=== PATIENT | female | born 1965 | race Caucasian/White ===

== ENCOUNTER 2020-06-13 12:32 | Emergency (ER) | payer MEDICARE, SELFPAY ==
[2020-06-13 12:33] VITALS: BP 149/96; PULSE 84; RESP 16; TEMP 36.8; O2SAT 98; BMI 29.2
--- NOTE | 2020-06-13 13:10 | HMH.EDGENADL ---
ED Disposition Clinical Impression: Hypothyroidism Disposition: Home, Self-Care Condition on Discharge: Good Prescriptions: Amoxicillin/Potassium Clav [Augmentin 875-125 Tablet] 1 tab PO Q12H 7 Days #14 tab Transmission Status: Pending to [facility] Levothyroxine Sodium [Synthroid 125mcg (0.125mg) tablet] 125 mcg PO DAILY #30 tab Levothyroxine Sodium [Synthroid 125mcg (0.125mg) tablet] 125 mcg PO DAILY #30 tab Transmission Status: Pending to [facility] Ondansetron [Zofran 4mg ODT] 4 mg PO TIDP PRN 5 Days #15 tab PRN Reason: Nausea Transmission Status: Pending to [facility] Referrals: PCP,No [Primary Care Provider] - - Critical Care Critical Care Time: No Attestation: On 06/13/20, the high probability of a clinically significant, sudden or life threatening deterioration of the following system(s) required my full and direct attention, intervention and personal management. The time I documented below is in addition to time spent performing reported procedures but includes the following listed in this critical care notation. Medical Decision Making - Medical Records Medical records reviewed: Yes: I reviewed the patient's medical records. - Juan Inquiry Pt receiving controlled substance: No Vital Signs: 06/13/20 12:33 06/13/20 14:05 Temperature 98.2 F Temperature Source Oral Pulse Rate 66 Pulse Rate [Radial] 84 Respiratory Rate 16 Blood Pressure 121/67 Blood Pressure [Right Arm] 149/96 H Blood Pressure Mean [Right Arm] 113 Blood Pressure Position [Right Arm] Sitting 02 Sat by Pulse Oximetry 98 95 Oxygen Delivery Method Room Air - Lab Data Lab Results 06/13/20 13:15: Urine Color Yellow, Urine Appearance Clear, Urine pH 6.0, Ur Specific [place] 1.020, Urine Protein Negative, Urine Glucose (UA) Negative, Urine Ketones Negative, Urine Blood Negative, Urine Nitrate Positive, Urine Bilirubin Negative, Urine Urobilinogen 0.2, Ur Leukocyte Esterase 1+ A, Urine RBC Occasional, Urine WBC 20-50, Ur Squamous Epith Cells Occasional, Urine Bacteria 1+, Urine Trichomonas Occasional 06/13/20 13:20: WBC 6.9, RBC 3.52 L, Hgb 11.6 L, Hct 37.0, MCV 105.3 H, MCH 33.1 H, MCHC 31.4 L, RDW 15.5, Plt Count 226, MPV 8.3, Neut % (Auto) 62.9, Lymph % (Auto) 31.0, [place] % (Auto) 2.6, Eos % (Auto) 2.5, Baso % (Auto) 0.9, Neut # (Auto) 4.3, Lymph # (Auto) 2.1, [place] # (Auto) 0.2, Eos # (Auto) 0.2, Baso # (Auto) 0.1 06/13/20 13:20: Sodium 142, Potassium 3.8, Chloride 106, Carbon Dioxide 32 H, Anion Gap 7.8, BUN 20 H, Creatinine 1.40 H, Estimated Creat Clear 55, Estimated GFR 39 L, Est GFR ( Amer) 47 L, Glucose 86, Calcium 9.8, TSH 68.50 H, Thyroxine (T4) 0.9 L Result diagrams: 06/13/20 13:20 06/13/20 13:20 Orders (Tests/Meds): ORDERS Category Date Time Status Urine Culture Stat Micro 06/13/20 13:15 Received Medical Decision Narrative: 54-year-old female presents with symptoms most consistent with hypothyroidism. She has been off her Synthroid 125 mcg/day for the last few months and symptoms are most consistent with this. Obtain labs as well to assess and thyroid function has been test. She is not in myxedema coma right now or any concern for infection. Labs came back and confirmed hypothyroidism plan to restart Synthroid dose per request and discharge with return precautions and symptomatic treatment General Adult HPI - General Chief complaint: Headache Stated complaint: right ear pain, headache, Time Seen by Provider: 06/13/20 12:45 Mode of Arrival: Ambulatory Limitations: No Limitations Description of Symptoms (Recalled from ER Triage Doc. by RN): TO ED PER PVT CAR WITH MULTIPLE C/O. C/O DIZZINESS, HEADACHE, RT EAR PAIN, FACIAL PAIN X 1 MONTH. I THINK IT'S MY THYROID OUT OF MEDS SINCE DEC. PT JUST MOVED TO AREA AND HAS NOT EST. WITH PCP. PT ALSO, C/O INCREASED THIRST AND FREG URINATION, LT HIP PAIN RADIATING DOWN LEG X YEARS
[2020-06-13 13:32] LABS: Microscopic, Urine URINE MICROSCOPIC (MICROSCOPIC)
[2020-06-13 13:36] LABS: Appearance,Urine CLEAR (Clear); Bilirubin,Urine Negative (Negative); Blood, Urine Negative (Negative); Color,Urine YELLOW (Yellow); Glucose,Urine (UA) Negative (Negative); Ketones,Urine Negative (Negative); Leukocyte Esterase,Urine 1+ (Negative); Nitrate,Urine POSITIVE (Negative); Protein,Urine Negative (Negative); Urobilinogen,Urine 0.2 EU/dl (0.2)
[2020-06-13 13:37] LABS: Basophils # 0.1 K/mm3 (0-0.2); Basophils % 0.9 % (0.1-2.0); Eosinophils # 0.2 K/mm3 (0.0-0.4); Eosinophils % 2.5 % (0.1-12.0); Hemoglobin 11.6 g/dL (12.2-16.2); Lymphocytes # 2.1 K/mm3 (0.7-4.5); Mean Corpuscular HGB Conc 31.4 g/dL (31.8-35.4); Mean Corpuscular Hemoglobin 33.1 pg (27.0-31.2); Mean Corpuscular Volume 105.3 fl (81-99); Mean Platelet Volume 8.3 fl (7.4-10.4); Monocytes # 0.2 K/mm3 (0.1-1.0); Monocytes % 2.6 % (1.7-9.3); Neutrophils # 4.3 K/mm3 (1.8-7.8); Neutrophils % 62.9 % (37.0-80.0); Platelet Count 226 K/mm3 (142-424); Red Blood Count 3.52 M/mm3 (4.20-5.40); Red Cell Distribution Width 15.5 % (11.5-17.5); White Blood Count 6.9 K/mm3 (4.8-10.8)
[2020-06-13 13:42] LABS: Chloride 106 mmol/L (98-107); Sodium 142 mmol/L (136-145)
[2020-06-13 13:43] LABS: Potassium 3.8 mmoL/L (3.5-5.1)
[2020-06-13 13:45] LABS: Blood Urea Nitrogen 20 mg/dl (7-17)
[2020-06-13 13:46] LABS: Anion Gap 7.8 mEq/L (5-15); Calcium 9.8 mg/dl (8.4-10.2); Carbon Dioxide 32 mmol/L (22.0-30.0); Creatinine Clearance Estimated 55 mL/min (50-200); Estimated Glomerular Filt Rate 39 ml/min (>60); GFR (African American) 47 ML/MIN (>60); Glucose 86 mg/dl (74-100)
[2020-06-13 13:53] LABS: WBC,Urine 20-50 #/hpf (0-3)
[2020-06-13 13:54] LABS: Bacteria,Urine 1+ /lpf; RBC,Urine Occasional #/hpf (0-3); Squamous Epithelial Cell,Urine Occasional #/hpf (0-5); Trichomonas,Urine Occasional /lpf
[2020-06-13 14:04] LABS: T4 (Thyroxine) 0.9 ug/dl (5.53-11.0)
[2020-06-13 14:05] VITALS: BP 121/67; PULSE 66; O2SAT 95
[2020-06-13 14:42] VITALS: BP 138/73; PULSE 63; RESP 17; TEMP 36.8; O2SAT 96
== END 2020-06-13 14:43 | disposition home or self-care (01) ==
PROVIDERS: Emergency Provider Emergency Medicine
DX: E03.9 Hypothyroidism, unspecified (principal); R35.0 Frequency of micturition
CPT/HCPCS: 80048; 81001; 84436; 84443; 85025; 87086; 87088; 87186; 99282

== ENCOUNTER → 2020-07-15 12:09 | Outpatient (CLI) | payer MEDICARE, SELFPAY ==
--- NOTE | 2020-07-15 12:25 | XR_ITS ---
PROCEDURE: XR CHEST 2V CLINICAL HISTORY: chest pain COMPARISON: No exams were available for comparison FINDINGS: The cardiomediastinal silhouette and pulmonary vascularity are within normal limits. The lungs are clear without infiltrates, suspicious nodules, or pleural effusions. There are calcified hilar nodes and there is a calcified granuloma left lower lobe. No acute bony abnormalities. IMPRESSION: No acute findings. Dictated by: Dr. Sam Cruz MD 07/15/2020 12:37 Dr. Sam Cruz MD in [place] 07/15/2020 12:37
[2020-07-15 13:04] LABS: Basophils % 0.5 % (0.1-2.0); Eosinophils # 0.1 K/mm3 (0.0-0.4); Eosinophils % 1.7 % (0.1-12.0); Hemoglobin 11.1 g/dL (12.2-16.2); Lymphocytes % 27.9 % (10-50); Mean Corpuscular HGB Conc 31.7 g/dL (31.8-35.4); Mean Corpuscular Hemoglobin 33.8 pg (27.0-31.2); Mean Corpuscular Volume 106.6 fl (81-99); Mean Platelet Volume 8.1 fl (7.4-10.4); Monocytes # 0.2 K/mm3 (0.1-1.0); Monocytes % 3.4 % (1.7-9.3); Neutrophils # 4.7 K/mm3 (1.8-7.8); Neutrophils % 66.5 % (37.0-80.0); Platelet Count 248 K/mm3 (142-424); Red Blood Count 3.28 M/mm3 (4.20-5.40); Red Cell Distribution Width 13.6 % (11.5-17.5)
[2020-07-15 13:28] LABS: Chloride 108 mmol/L (98-107); Potassium 4.5 mmoL/L (3.5-5.1); Sodium 142 mmol/L (136-145)
[2020-07-15 13:30] LABS: Blood Urea Nitrogen 21 mg/dl (7-17); Estimated Glomerular Filt Rate 65 ml/min (>60); GFR (African American) 79 ML/MIN (>60)
[2020-07-15 13:31] LABS: Alanine Aminotransferase 32 U/L (12-78); Albumin Level 4.7 g/dl (3.5-5.0); Albumin/Globulin Ratio 1.8 (1.1-1.8); Alkaline Phosphatase 76 U/L (38-126); Anion Gap 12.5 mEq/L (5-15); Aspartate Amino Transferase 42 U/L (14-36); Bilirubin,Total 0.4 mg/dl (0.2-1.3); Calcium 9.9 mg/dl (8.4-10.2); Carbon Dioxide 26 mmol/L (22.0-30.0); Cholesterol 241 mg/dl (140-200); Globulin 2.6 g/dL (1.3-3.2); Glucose 99 mg/dl (74-100); Total Protein,Serum 7.3 g/dl (6.3-8.2); Triglycerides 120 mg/dl (30-150); VLDL Cholesterol 24 mg/dL (0-40)
[2020-07-15 13:32] LABS: Chol/HDL Ratio 5.1 (1-3.5); HDL Cholesterol 47 mg/dl (40-60)
[2020-07-15 13:42] LABS: C-Reactive Protein 44.7 mg/L (0-4)
[2020-07-15 13:47] LABS: Direct LDL Cholesterol 145.02 mg/dL (100-129)
[2020-07-15 14:03] LABS: Thyroid Stimulating Hormone 2.93 uIU/mL (0.465-4.68)
== END ==
PROVIDERS: Visit Provider Family Medicine
DX: E78.5 Hyperlipidemia, unspecified (principal); E03.9 Hypothyroidism, unspecified; M15.4 Erosive (osteo)arthritis; J44.9 Chronic obstructive pulmonary disease, unspecified; R07.9 Chest pain, unspecified
CPT/HCPCS: 36415; 71046; 80053; 80061; 84443; 85025; 86140

== ENCOUNTER 2021-01-28 13:41 | Emergency (ER) | payer MEDICARE, SELFPAY ==
[2021-01-28 13:45] VITALS: BP 141/87; PULSE 93; RESP 18; TEMP 36.6; O2SAT 98; BMI 31.7
--- NOTE | 2021-01-28 14:23 | HMH.EDUTC ---
[facility] [place] Clinical Impression: Skin infection Disposition: Home, Self-Care Condition on Discharge: Good Instructions: DI for Anxiety -- Adult, DI for Itching, Hydroxyzine Additional Instructions: Take medication as prescribed Over the counter aquaphor may help with lesions on face and chest DO NOT PICK at the lesions as this may lead to infection Follow up with your Family Doctor if no improvement or any worsening of symptoms or if swelling or edema returns Straight to ER if any life threatening symptoms Prescriptions: Mupirocin Calcium [Mupirocin 2% Cream 15gm] 1 applicatio TP TID #15 gm Transmission Status: Received by [facility] hydrOXYzine pamoate [Vistaril 25mg capsule] 25 mg PO Q8H PRN #15 cap PRN Reason: Itching Transmission Status: Received by [facility] Referrals: Ge Palm MD [Primary Care Provider] - As needed Forms: Work/School Release Time of Disposition: 14:42 Medical Decision Making - Juan Inquiry Pt receiving controlled substance: No Juan was queried for this patient: No Vital Signs: 01/28/21 13:45 01/28/21 14:52 Temperature 97.8 F 97.8 F Temperature Source Oral Pulse Rate 93 H Pulse Rate [Right Brachial] 93 H Respiratory Rate 18 18 Blood Pressure 141/87 H Blood Pressure [Right Arm] 141/87 H Blood Pressure Mean [Right Arm] 105 Blood Pressure Source [Right Arm] Automatic Cuff Blood Pressure Position [Right Arm] Sitting 02 Sat by Pulse Oximetry 98 Oxygen Delivery Method Room Air [facility] [place] HPI - General Stated complaint: facial rash 3-4 days Time Seen by Provider: 01/28/21 14:23 Mode of Arrival: Ambulatory Source of Information: Patient Limitations: No Limitations Description of Symptoms (Recalled from Triage Doc. by RN): PATIENT C/O RASH TO FACE X 4 DAYS AND FLUID RETENTION TO LEGS AND HANDS X 2 DAYS HEENT Symptoms (Recalled from RN notes): No Resp Symptoms (Recalled from RN notes): No Skin Symptoms (Recalled from RN notes): Yes MS Symptoms (Recalled from RN notes): Yes Functional Status (Recalled from RN notes): WNL - History of Present Illness Provider Complaint: Patient states that she has had rash on her face and chest for several days and she has been a little anxious and has been picking at it and worried that she may have it infected States that family bought her some neosporin to put on it and it has helped some but she is itching all over and she has picked at it more States that she had some swelling in her legs and feet a couple days ago but that seems better now - Related Data Home Medications Medication Instructions Recorded Confirmed Levothyroxine Sodium [Synthroid 125 mcg PO DAILY 01/28/21 01/28/21 125mcg (0.125mg) tablet] Previous Rx's Medication Instructions Recorded Mupirocin Calcium [Mupirocin 2% 1 applicatio TP TID #15 gm 01/28/21 Cream 15gm] hydrOXYzine pamoate [Vistaril 25mg 25 mg PO Q8H PRN #15 cap 01/28/21 capsule] Allergies Allergy/AdvReac Type Severity Reaction Status Date / Time pentazocine [From Reyna] Allergy Verified 07/15/20 11:09 Sulfa (Sulfonamide Allergy Verified 07/15/20 11:09 Antibiotics) - Worker's Comp Is this a Worker's Comp case?: No [facility] History - Hepatitis A Screen Drug use history?: No High risk sexual behaviors?: No History of sexually transmitted infection?: No Currently employed?: No Childcare worker?: No Do you have indoor plumbing?: Yes Do you have electricity?: Yes Attestation statement:: This patient has been screened for Hepatitis A risk factors. I have reviewed the patient's past medical history: Yes Medical History: Reports:: Chronic Obstructive Pulmonary Disease (COPD) Other Medical History: Reports: Hypothyroidism Laterality Cases: Bilateral: Tonsillectomy Other Surgeries: Yes: Tubal Ligation Comment: excision of lesion under breast. - Social History Smoking Status: Current every day smoker Tobacco Type: cig
[2021-01-28 14:52] VITALS: BP 141/87; PULSE 93; RESP 18; TEMP 36.6; O2SAT 98
== END 2021-01-28 14:57 | disposition home or self-care (01) ==
PROVIDERS: Emergency Provider Nurse Practitioner; PCP Emergency Medicine
DX: L08.9 Local infection of the skin and subcutaneous tissue, unspecified (principal); R21 Rash and other nonspecific skin eruption; F17.210 Nicotine dependence, cigarettes, uncomplicated; R60.0 Localized edema; J44.9 Chronic obstructive pulmonary disease, unspecified; E03.9 Hypothyroidism, unspecified; Z79.899 Other long term (current) drug therapy
CPT/HCPCS: G0463; 99202

== ENCOUNTER → 2021-09-09 06:59 | Outpatient (CLI) | payer MEDICARE, SELFPAY ==
[2021-09-08 18:39] LABS: Basophils # 0.1 K/mm3 (0-0.2); Basophils % 1.7 % (0.1-2.0); Eosinophils # 0.2 K/mm3 (0.0-0.4); Eosinophils % 2.8 % (0.1-12.0); Hematocrit 45.5 % (37.0-47.0); Hemoglobin 14.7 g/dL (12.2-16.2); Lymphocytes # 2.7 K/mm3 (0.7-4.5); Lymphocytes % 38.1 % (10-50); Mean Corpuscular HGB Conc 32.3 g/dL (31.8-35.4); Mean Corpuscular Hemoglobin 30.6 pg (27.0-31.2); Mean Corpuscular Volume 94.6 fl (81-99); Mean Platelet Volume 8.8 fl (7.4-10.4); Monocytes # 0.2 K/mm3 (0.1-1.0); Monocytes % 2.9 % (1.7-9.3); Neutrophils # 3.9 K/mm3 (1.8-7.8); Neutrophils % 54.6 % (37.0-80.0); Platelet Count 325 K/mm3 (142-424); Red Blood Count 4.81 M/mm3 (4.20-5.40); Red Cell Distribution Width 14.3 % (11.5-17.5); White Blood Count 7.2 K/mm3 (4.8-10.8)
[2021-09-08 19:04] LABS: Alanine Aminotransferase 33 U/L (12-78); Albumin Level 4.4 g/dl (3.5-5.0); Anion Gap 14.9 mEq/L (5-15); Aspartate Amino Transferase 35 U/L (14-36); Blood Urea Nitrogen 19 mg/dl (7-17); Calcium 9.8 mg/dl (8.4-10.2); Carbon Dioxide 26 mmol/L (22.0-30.0); Chloride 104 mmol/L (98-107); Estimated Glomerular Filt Rate 74 ml/min (>60); GFR (African American) 90 ML/MIN (>60); Globulin 2.8 g/dL (1.3-3.2); Glucose 123 mg/dl (74-100); Potassium 4.9 mmoL/L (3.5-5.1); Sodium 140 mmol/L (136-145); Total Protein,Serum 7.2 g/dl (6.3-8.2)
[2021-09-08 19:05] LABS: Albumin/Globulin Ratio 1.6 (1.1-1.8); Alkaline Phosphatase 94 U/L (38-126)
[2021-09-08 19:09] LABS: Bilirubin,Total < 0.1 mg/dl (0.2-1.3)
[2021-09-08 19:21] LABS: Free T4 (Free Thyroxine) 1.32 ng/dl (0.78-2.19)
[2021-09-08 19:36] LABS: Thyroid Stimulating Hormone 0.02 uIU/mL (0.465-4.68)
== END ==
PROVIDERS: PCP Family Medicine; Visit Provider Family Medicine
DX: R53.83 Other fatigue (principal)
CPT/HCPCS: 80053; 84439; 84443; 85025

== ENCOUNTER 2021-10-28 12:14 | Emergency (ER) | payer MEDICARE, SELFPAY ==
[2021-10-28] VITALS (8 sets, daily range): BP systolic 111–129; BP diastolic 54–73; PULSE 68–84; RESP 16–18; TEMP 36.6; O2SAT 95–97; BMI 30.9
[2021-10-28 12:34] LABS: Microscopic, Urine URINE MICROSCOPIC (MICROSCOPIC)
[2021-10-28 12:38] LABS: Appearance,Urine CLEAR (Clear); Bilirubin,Urine Negative (Negative); Blood, Urine Negative (Negative); Color,Urine YELLOW (Yellow); Glucose,Urine (UA) Negative (Negative); Ketones,Urine Negative (Negative); Leukocyte Esterase,Urine 1+ (Negative); Nitrate,Urine Negative (Negative); Protein,Urine Negative (Negative); Specific Gravity, Urine 1.025 (1.005-1.030); Urobilinogen,Urine 0.2 EU/dl (0.2)
[2021-10-28 12:58] LABS: Bacteria,Urine 1+ /lpf
--- NOTE | 2021-10-28 13:09 | CT_ITS ---
FINAL REPORT TECHNIQUE: After the administration of intravenous contrast, axial images were obtained through the abdomen and pelvis by computed tomography. The study was performed with techniques to keep radiation dose as low as reasonably achievable, (ALARA). Individual dose reduction techniques using automated exposure control or adjustment of mA and/or kV according to the patient's size were employed. CLINICAL HISTORY: RUQ pain x 2 wks, N/V/D x 3 days FINDINGS: Abdomen: There is a calcified granuloma in the right lung base. The lung bases are otherwise clear. The liver is normal in size and attenuation. The gallbladder is present. The spleen is unremarkable. The adrenals are normal. The pancreas is unremarkable. The kidneys enhance appropriately. The aorta is normal in caliber. There is no free fluid or adenopathy. Pelvis: The appendix is normal. The urinary bladder is unremarkable. There is no free fluid or adenopathy. IMPRESSION: No acute intra-abdominal process. Reviewed, Interpreted and Dictated by Terrance Corado III, MD Transcribed by Denisa Felder Authenticated and [facility]
--- NOTE | 2021-10-28 13:11 | US_ITS ---
FINAL REPORT CLINICAL HISTORY: RUQ pain FINDINGS: Sonographic images of the right upper quadrant were obtained. The pancreas is partially obscured.The liver has an unremarkable appearance. There is a small amount of sludge in the gallbladder. The gallbladder demonstrates a hyperechoic rim of uncertain etiology, could represent calcification. There is no evidence of biliary ductal dilatation.The common duct measures 3 mm. There is a right renal cyst measuring 1.6 cm. IMPRESSION: Small amount of sludge in the gallbladder with a hyperechoic rim of uncertain etiology. If indicated, CT could further evaluate. Right renal cyst. Reviewed, Interpreted and Dictated by Terrance Corado III, MD Transcribed by Denisa Felder Authenticated and . [facility]
--- NOTE | 2021-10-28 13:12 | HMH.EDGENADL ---
ED Disposition Clinical Impression: Back pain Qualifiers: Back pain location: low back pain Chronicity: chronic Back pain laterality: right Sciatica presence: without sciatica Qualified Code(s): M54.50 - Low back pain, unspecified; G89.29 - Other chronic pain Disposition: Home, Self-Care Condition on Discharge: Good Prescriptions: methocarbamoL [Methocarbamol] 750 mg PO Q6 PRN #30 tab PRN Reason: Muscle Spasm Transmission Status: Pending to [facility] Referrals: Ge Palm MD [Primary Care Provider] - Isidoro Slater MD [Staff Physician] - - Critical Care Critical Care Time: No Attestation: On 10/28/21, the high probability of a clinically significant, sudden or life threatening deterioration of the following system(s) required my full and direct attention, intervention and personal management. The time I documented below is in addition to time spent performing reported procedures but includes the following listed in this critical care notation. Medical Decision Making - Juan Inquiry Pt receiving controlled substance: No Juan was queried for this patient: No Vital Signs: 10/28/21 12:15 10/28/21 12:30 10/28/21 13:00 Temperature 97.8 F Temperature Source Oral Pulse Rate 84 78 Pulse Rate [Right Radial] 83 Respiratory Rate 16 16 16 Blood Pressure 123/73 117/62 Blood Pressure [Right Arm] 129/70 Blood Pressure Mean 90 80 Blood Pressure Mean [Right Arm] 89 02 Sat by Pulse Oximetry 97 97 95 Oxygen Delivery Method Room Air 10/28/21 13:30 10/28/21 14:30 10/28/21 15:00 Temperature Temperature Source Pulse Rate 69 68 69 Pulse Rate [Right Radial] Respiratory Rate 16 16 Blood Pressure 113/54 L 113/56 L 111/56 L Blood Pressure [Right Arm] Blood Pressure Mean 73 63 74 Blood Pressure Mean [Right Arm] 02 Sat by Pulse Oximetry 95 97 95 Oxygen Delivery Method 10/28/21 15:30 Temperature Temperature Source Pulse Rate 68 Pulse Rate [Right Radial] Respiratory Rate 18 Blood Pressure 120/58 L Blood Pressure [Right Arm] Blood Pressure Mean 83 Blood Pressure Mean [Right Arm] 02 Sat by Pulse Oximetry 96 Oxygen Delivery Method - Lab Data Lab Results 10/28/21 12:25: Urine Color Yellow, Urine Appearance Clear, Urine pH 6.0, Ur Specific [place] 1.025, Urine Protein Negative, Urine Glucose (UA) Negative, Urine Ketones Negative, Urine Blood Negative, Urine Nitrate Negative, Urine Bilirubin Negative, Urine Urobilinogen 0.2, Ur Leukocyte Esterase 1+ A, Urine RBC 3-5, Urine WBC 10-20, Ur Squamous Epith Cells 3-5, Urine Bacteria 1+ 10/28/21 13:15: WBC 7.6, RBC 4.34, Hgb 13.6, Hct 42.6, MCV 98.2, MCH 31.3 H, MCHC 31.9, RDW 14.3, Plt Count 286, MPV 8.8, Neut % (Auto) 68.4, Lymph % (Auto) 23.0, [place] % (Auto) 4.1, Eos % (Auto) 3.1, Baso % (Auto) 1.3, Neut # (Auto) 5.2, Lymph # (Auto) 1.8, [place] # (Auto) 0.3, Eos # (Auto) 0.2, Baso # (Auto) 0.1 10/28/21 13:15: Sodium 139, Potassium 4.1, Chloride 108 H, Carbon Dioxide 27, Anion Gap 8.1, BUN 16, Creatinine 0.80, Estimated Creat Clear 100, Estimated GFR 74, Est GFR ( Amer) 89, Glucose 116 H, Calcium 9.3, Total Bilirubin 0.2, AST 23, ALT 28, Alkaline Phosphatase 96, Total Protein 6.9, Albumin 4.0, Globulin 2.9, Albumin/Globulin Ratio 1.4 10/28/21 13:15: SARS-CoV-2 (PCR) Not detected, Influenza A Untype (PCR) Not detected, Influenza Type B (PCR) Not detected 10/28/21 13:15: Lipase 35 Result diagrams: 10/28/21 13:15 10/28/21 13:15 Orders (Tests/Meds): ED MEDICATIONS Generic Name Dose Route Start Last Admin Trade Name Freq PRN Reason Stop Dose Admin Sodium Chloride 10 ml 10/28/21 12:27 Sodium Chloride 0.9% 10ml Flush Syringe IV 11/27/21 12:26 NEEDED PRN Maintain IV Site Discontinued Medications Generic Name Dose Route Start Last Admin Trade Name Freq PRN Reason Stop Dose Admin Iopamidol 75 ml 10/28/21 14:25 10/28/21 14:26 Iopamidol-370 (76%);100ml Bottle IV 10/28/21 14:26
--- NOTE | 2021-10-28 13:20 | PC.NURSE ---
called radiology and notified of gallbladder u/s
--- NOTE | 2021-10-28 13:20 | PC.NURSE ---
rad notified of CT and ultrasound orders
[2021-10-28 13:25] LABS: Coronavirus 19, PCR Not Detected (NotDetected); Influenza A, PCR Not Detected (NotDetected); Influenza B, PCR Not Detected (NotDetected)
[2021-10-28 13:28] LABS: Basophils # 0.1 K/mm3 (0-0.2); Basophils % 1.3 % (0.1-2.0); Eosinophils # 0.2 K/mm3 (0.0-0.4); Eosinophils % 3.1 % (0.1-12.0); Hematocrit 42.6 % (37.0-47.0); Hemoglobin 13.6 g/dL (12.2-16.2); Lymphocytes # 1.8 K/mm3 (0.7-4.5); Mean Corpuscular HGB Conc 31.9 g/dL (31.8-35.4); Mean Corpuscular Hemoglobin 31.3 pg (27.0-31.2); Mean Corpuscular Volume 98.2 fl (81-99); Mean Platelet Volume 8.8 fl (7.4-10.4); Monocytes # 0.3 K/mm3 (0.1-1.0); Monocytes % 4.1 % (1.7-9.3); Neutrophils # 5.2 K/mm3 (1.8-7.8); Neutrophils % 68.4 % (37.0-80.0); Platelet Count 286 K/mm3 (142-424); Red Blood Count 4.34 M/mm3 (4.20-5.40); Red Cell Distribution Width 14.3 % (11.5-17.5); White Blood Count 7.6 K/mm3 (4.8-10.8)
[2021-10-28 13:35] LABS: Lipase 35 U/L (23-300)
[2021-10-28 13:36] LABS: Alanine Aminotransferase 28 U/L (12-78); Albumin/Globulin Ratio 1.4 (1.1-1.8); Alkaline Phosphatase 96 U/L (38-126); Anion Gap 8.1 mEq/L (5-15); Aspartate Amino Transferase 23 U/L (14-36); Bilirubin,Total 0.2 mg/dl (0.2-1.3); Blood Urea Nitrogen 16 mg/dl (7-17); Calcium 9.3 mg/dl (8.4-10.2); Carbon Dioxide 27 mmol/L (22.0-30.0); Chloride 108 mmol/L (98-107); Creatinine Clearance Estimated 100 mL/min (50-200); Estimated Glomerular Filt Rate 74 ml/min (>60); GFR (African American) 89 ML/MIN (>60); Globulin 2.9 g/dL (1.3-3.2); Glucose 116 mg/dl (74-100); Potassium 4.1 mmoL/L (3.5-5.1); Sodium 139 mmol/L (136-145); Total Protein,Serum 6.9 g/dl (6.3-8.2)
--- NOTE | 2021-10-28 13:40 | PC.NURSE ---
pt to ultrasound via wheelchair
--- NOTE | 2021-10-28 15:50 | PC.NURSE ---
rounded on pt, updated about poc
--- NOTE | 2021-10-28 16:11 | PC.NURSE ---
pt daughter had called to check on her, stated to just have her mother let her know when she is ready to be picked up. Notified pt of her daughter calling. Pt resting in bed, notified pt all test results are back ER MD should be in soon to go over all results with her. Pt verbalized understanding, states no needs at this time.
--- NOTE | 2021-10-28 16:14 | PC.NURSE ---
ER at updated pt on test results and POC
== END 2021-10-28 16:26 | disposition home or self-care (01) ==
PROVIDERS: Emergency Provider Student in an Organized Health Care Education/Training Program; PCP Emergency Medicine
DX: M54.41 Lumbago with sciatica, right side (principal); G89.29 Other chronic pain; R10.9 Unspecified abdominal pain; R11.2 Nausea with vomiting, unspecified; R19.7 Diarrhea, unspecified; F17.210 Nicotine dependence, cigarettes, uncomplicated
CPT/HCPCS: 74177; 76705; 80053; 81001; 83690; 85025; 87086; 87088; 87186; 99212; C9803; G0463; J2405; Q9967; U0003; U0005

== ENCOUNTER → 2022-09-09 14:32 | Outpatient (CLI) | payer MEDICARE, SELFPAY ==
[2022-09-09 18:26] LABS: Basophils % 0.5 % (0.1-2.0); Eosinophils # 0.2 K/mm3 (0.0-0.4); Eosinophils % 3.2 % (0.1-12.0); Hematocrit 45.5 % (37.0-47.0); Hemoglobin 14.6 g/dL (12.2-16.2); Lymphocytes # 2.5 K/mm3 (0.7-4.5); Lymphocytes % 35.2 % (10-50); Mean Corpuscular HGB Conc 32.1 g/dL (31.8-35.4); Mean Corpuscular Hemoglobin 30.3 pg (27.0-31.2); Mean Corpuscular Volume 94.4 fl (81-99); Mean Platelet Volume 9.8 fl (7.4-10.4); Monocytes # 0.3 K/mm3 (0.1-1.0); Monocytes % 4.7 % (1.7-9.3); Neutrophils % 56.5 % (37.0-80.0); Platelet Count 236 K/mm3 (142-424); Red Blood Count 4.82 M/mm3 (4.20-5.40); Red Cell Distribution Width 13.7 % (11.5-17.5); White Blood Count 7.1 K/mm3 (4.8-10.8)
[2022-09-09 18:36] LABS: Alanine Aminotransferase 39 U/L (12-78); Albumin Level 4.4 g/dl (3.5-5.0); Albumin/Globulin Ratio 1.6 (1.1-1.8); Alkaline Phosphatase 100 U/L (38-126); Anion Gap 15.3 mEq/L (5-15); Aspartate Amino Transferase 32 U/L (14-36); Bilirubin,Total 0.2 mg/dl (0.2-1.3); Blood Urea Nitrogen 19 mg/dl (7-17); Carbon Dioxide 24 mmol/L (22.0-30.0); Chloride 108 mmol/L (98-107); Estimated Glomerular Filt Rate 65 ml/min (>60); GFR (African American) 78 ML/MIN (>60); Globulin 2.7 g/dL (1.3-3.2); Glucose 83 mg/dl (74-100); HDL Cholesterol 45 mg/dl (40-60); Potassium 4.3 mmoL/L (3.5-5.1); Sodium 143 mmol/L (136-145); Total Protein,Serum 7.1 g/dl (6.3-8.2); Triglycerides 299 mg/dl (30-150); VLDL Cholesterol 60 mg/dL (0-40)
[2022-09-09 18:47] LABS: Direct LDL Cholesterol 212.23 mg/dL (100-129)
[2022-09-09 18:49] LABS: Chol/HDL Ratio 8.2 (1-3.5); Cholesterol 367 mg/dl (140-200)
[2022-09-09 19:07] LABS: Thyroid Stimulating Hormone 0.03 uIU/mL (0.465-4.68)
[2022-09-09 19:21] LABS: 25-OH Vitamin D, Total 19.6 ng/mL (30-100)
[2022-09-11 18:06] LABS: Hep A Ab, Total Positive (Negative); Hep B Core Ab, Total Negative (Negative); Hep B Surface Ab, Qual Non Reactive (.)
[2022-10-13 23:22] LABS: Alpha 2-Macroglobulins, Qn 153; Fibrosis Score 0.05; Fibrosis Stage F0; Necroinflammat Activity Grade A0; Necroinflammat Activity Score 0.12
[2022-10-13 23:23] LABS: ALT (SGPT) P5P 33; Apolipoprotein A-1 117; Bilirubin, Total 0.1; GGT 47; HIV Screen 4th Generation wRfx Non Reactive; Haptoglobin 249; Hepatitis B Surface Antigen Negative
[2022-10-13 23:24] LABS: Hepatitis C Antibody Non Reactive
== END ==
PROVIDERS: PCP Nurse Practitioner Family; Visit Provider Nurse Practitioner Family
DX: B19.20 Unspecified viral hepatitis C without hepatic coma (principal); E03.9 Hypothyroidism, unspecified; M79.10 Myalgia, unspecified site; E55.9 Vitamin D deficiency, unspecified; Z11.4 Encounter for screening for human immunodeficiency virus [HIV]
CPT/HCPCS: 80053; 80061; 81596; 82306; 84443; 85025; 86703; 86704; 86706; 86708; 87340; 87380; 87522; G0432

== ENCOUNTER 2022-12-15 11:43 | Emergency (ER) | payer MEDICARE, SELFPAY ==
[2022-12-15 11:45] VITALS: BP 135/84; PULSE 79; RESP 16; TEMP 36.5; O2SAT 97; BMI 30.4
[2022-12-15 11:55] VITALS: BP 135/84; PULSE 79
[2022-12-15 12:00] VITALS: BP 135/85; PULSE 76
--- NOTE | 2022-12-15 12:24 | ECG_ITS ---
APPROVED REPORT Exam: Resting ECG HR:54 bpm ECG Measurements Heart Rate 54 AXES DE 167 P 82 QRSd 89 QRS 48 QT 425 T 80 QTc 410 Conclusion SINUS BRADYCARDIA WITH SINUS ARRHYTHMIA BORDERLINE ECG UNCONFIRMED REPORT Electronically signed by : Jaspreet Alvarez MD 12/16/2022 07:50:17
[2022-12-15 12:31] VITALS: BP 167/73; PULSE 60; O2SAT 95
[2022-12-15 12:36] LABS: Coronavirus 19, PCR Not Detected (NotDetected); Influenza A, PCR Not Detected (NotDetected); Influenza B, PCR Not Detected (NotDetected)
[2022-12-15 12:38] LABS: Basophils % 0.4 % (0.1-2.0); Eosinophils # 0.1 K/mm3 (0.0-0.4); Eosinophils % 1.4 % (0.1-12.0); Hematocrit 48.3 % (37.0-47.0); Hemoglobin 15.3 g/dL (12.2-16.2); Lymphocytes # 2.2 K/mm3 (0.7-4.5); Lymphocytes % 26.4 % (10-50); Mean Corpuscular HGB Conc 31.6 g/dL (31.8-35.4); Mean Corpuscular Hemoglobin 29.9 pg (27.0-31.2); Mean Corpuscular Volume 94.7 fl (81-99); Mean Platelet Volume 9.3 fl (7.4-10.4); Monocytes # 0.2 K/mm3 (0.1-1.0); Monocytes % 2.7 % (1.7-9.3); Neutrophils # 5.6 K/mm3 (1.8-7.8); Neutrophils % 69.1 % (37.0-80.0); Platelet Count 275 K/mm3 (142-424); Red Cell Distribution Width 13.4 % (11.5-17.5); White Blood Count 8.1 K/mm3 (4.8-10.8)
[2022-12-15 12:46] LABS: Potassium 3.7 mmoL/L (3.5-5.1); Sodium 138 mmol/L (136-145)
[2022-12-15 12:47] LABS: Chloride 103 mmol/L (98-107)
[2022-12-15 12:49] LABS: Alanine Aminotransferase 33 U/L (12-78); Albumin Level 4.3 g/dl (3.5-5.0); Albumin/Globulin Ratio 1.4 (1.1-1.8); Alkaline Phosphatase 88 U/L (38-126); Anion Gap 12.7 mEq/L (5-15); Aspartate Amino Transferase 29 U/L (14-36); Bilirubin,Total 0.4 mg/dl (0.2-1.3); Blood Urea Nitrogen 20 mg/dl (7-17); Carbon Dioxide 26 mmol/L (22.0-30.0); Creatinine Clearance Estimated 97 mL/min (50-200); Estimated Glomerular Filt Rate 74 ml/min (>60); GFR (African American) 89 ML/MIN (>60); Total Protein,Serum 7.3 g/dl (6.3-8.2)
[2022-12-15 12:50] LABS: Glucose 150 mg/dl (74-100)
[2022-12-15 13:00] VITALS: BP 156/78; PULSE 56; O2SAT 98
[2022-12-15 13:02] LABS: Troponin I < 0.01 ng/ml (0.00-0.034)
--- NOTE | 2022-12-15 13:05 | HMH.EDGENADL ---
Discharge Plan Disposition Patient Disposition: Home, Self-Care Prescriptions Prescriptions: New ondansetron 4 mg tablet,disintegrating 4 mg PO Q6H PRN (Reason: nausea and vomiting) 5 Days Qty: 20 0RF No Action cholecalciferol (vitamin D3) 50 mcg (2,000 unit) capsule 50 mcg PO DAILY Qty: 30 4RF cholecalciferol (vitamin D3) 1,250 mcg (50,000 unit) tablet 1,250 mcg PO WEEKLY Qty: 7 2RF levothyroxine 125 mcg tablet See Rx Instructions .ROUTE .COMPLEX Qty: 90 0RF Dose Instruction: TAKE ONE TABLET BY MOUTH ONCE A DAY Rx Instructions: TAKE ONE TABLET BY MOUTH ONCE A DAY Referrals Follow up/Referrals: Ge Palm MD [Primary Care Provider] - See instructions Activity Restrictions/Add. Instructions Additional Instructions/Restrictions: Your symptoms are consistent with a viral syndrome please keep your self well-hydrated return with any inability to keep fluids down worsening abdominal pain or other concerns. Clinical Impressions Clinical Impression: Nausea vomiting and diarrhea, Headache, Acute dehydration, Cramps, muscle, general, Hypertension Instructions Patient Instructions: DI for Diarrhea and Traveler's Diarrhea -- Adult, DI for Diarrhea and Traveler's Diarrhea -- Child, DI for Nausea -- Adult, DI for Nausea -- Child Discharge ED Provider: Luh Enamorado General Adult HPI General Chief complaint: Nausea/Vomiting/Diarrhea Stated complaint: vomiting,possible dehydrated Time Seen by Provider: 12/15/22 12:57 Mode of Arrival: Ambulatory Source of Information: Patient Limitations: No Limitations Description of Symptoms (Recalled from ER Triage Doc. by RN): c/o vomiting, fever, muscle spasms, severe NGUYỄN and dizzy with standing since Tuesday. PCP sent her over for further evaluation. History of Present Illness HPI narrative: Patient is a 57-year-old female presents today with 3 days of nausea vomiting diarrhea and some muscle aches and spasms. She states that she has not had any blood in her vomit or her stool. Denies any fevers to me states she has had a headache that has been significant since been slowly worsening no meningismus she has some lightheadedness after several days of the vomiting diarrhea. No sick contacts that she is aware of. No significant abdominal pain. She did have a cough at the beginning of this but that has since resolved. Related Data Previous Rx's Medication Instructions Recorded cholecalciferol (vitamin D3) 1,250 1,250 mcg PO WEEKLY #7 tabs 09/10/22 mcg (50,000 unit) tablet cholecalciferol (vitamin D3) 50 50 mcg PO DAILY #30 caps 09/10/22 mcg (2,000 unit) capsule levothyroxine 125 mcg tablet See Rx Instructions .Route 10/14/22 .COMPLEX #90 tabs ondansetron 4 mg disintegrating 4 mg PO Q6H PRN nausea and 12/15/22 tablet vomiting 5 days #20 tabs Allergies Allergy/AdvReac Type Severity Reaction Status Date / Time pentazocine [From Talwin] Allergy Verified 09/09/22 13:32 Sulfa (Sulfonamide Allergy Verified 09/09/22 13:32 Antibiotics) [facility] Disclaimer: The information contained in this section may have been updated after the patient was seen, as this information can be updated by other users. Social History Smoking Status: Current every day smoker tobacco type: cigarettes packs per day: 1 alcohol intake: never substance use type: denies use current occupational status: other Travel in the last 8 weeks: None household members: family housing: house ROS Obtained: Yes All systems reviewed & no additional complaints except as documented Physical Exam General General appearance: alert Neck Neck exam: Absent meningismus Respiratory Respiratory exam: Present normal lung sounds bilaterally Cardiovascular Cardiovascular exam: Present regular rate; Absent tachycardia Abdominal Exam Abdominal exam: Present soft; Absent distention or tenderness Neurologica
--- NOTE | 2022-12-15 13:23 | PC.NURSE ---
UA sent to lab
[2022-12-15 13:32] LABS: Microscopic, Urine URINE MICROSCOPIC (MICROSCOPIC)
[2022-12-15 13:34] LABS: Appearance,Urine CLEAR (Clear); Blood, Urine Negative (Negative); Color,Urine YELLOW (Yellow); Glucose,Urine (UA) Negative (Negative); Ketones,Urine Negative (Negative); Leukocyte Esterase,Urine Negative (Negative); Nitrate,Urine Negative (Negative); Protein,Urine TRACE (Negative)
[2022-12-15 13:36] LABS: Bilirubin,Urine 1+ (Negative)
[2022-12-15 13:45] LABS: Bacteria,Urine 1+ /lpf; Mucus,Urine 1+ /lpf; WBC,Urine Occasional #/hpf (0-3)
[2022-12-15 13:53] VITALS: BP 130/69; PULSE 71; RESP 16; TEMP 36.5; O2SAT 100
== END 2022-12-15 13:54 | disposition home or self-care (01) ==
PROVIDERS: Emergency Provider Student in an Organized Health Care Education/Training Program; PCP Emergency Medicine
DX: E86.0 Dehydration (principal); R51.9 Headache, unspecified; R11.2 Nausea with vomiting, unspecified; R19.7 Diarrhea, unspecified; F17.210 Nicotine dependence, cigarettes, uncomplicated
CPT/HCPCS: 80053; 81001; 84484; 85025; 87636; 93005; 96361; 96374; 96375; 99285; J2405

== ENCOUNTER 2022-12-17 14:54 | Emergency (ER) | payer MEDICARE, SELFPAY ==
[2022-12-17] VITALS (8 sets, daily range): BP systolic 137–175; BP diastolic 64–87; PULSE 43–74; RESP 14–22; TEMP 36.3–36.7; O2SAT 92–98; BMI 30.4
--- NOTE | 2022-12-17 14:56 | ECG_ITS ---
APPROVED REPORT Exam: Resting ECG HR:47 bpm ECG Measurements Heart Rate 47 AXES FL 160 P 65 QRSd 95 QRS 20 QT 449 T 54 QTc 412 Conclusion SINUS BRADYCARDIA BORDERLINE ECG UNCONFIRMED REPORT Electronically signed by : Jaspreet Alvarez MD 12/19/2022 07:37:55
--- NOTE | 2022-12-17 15:10 | XR_ITS ---
FINAL REPORT CLINICAL HISTORY: general weakness FINDINGS: A single view of the chest was obtained. The heart is normal in size. The mediastinum is unremarkable. The lungs are clear. There is no pleural effusion. There is no pneumothorax. There is no acute osseous abnormality. IMPRESSION: No acute cardiopulmonary process. Reviewed, Interpreted and Dictated by Shaji Arauz MD Transcribed by Genevieve Marshall Authenticated and [facility]
--- NOTE | 2022-12-17 15:19 | CT_ITS ---
FINAL REPORT TECHNIQUE: multiple axial CT images were performed from the foramen magnum to the vertex without enhancement. This study was performed with techniques to keep radiation doses as low as reasonably achievable (ALARA). Individualized dose reduction techniques using automated exposure control or adjustment of mA and/or kV according to the patient's size were employed. CLINICAL HISTORY: fall blood thinners FINDINGS: There is mild to moderate patchy abnormal attenuation in the deep white matter. There is encephalomalacia in both cerebellar hemispheres, more evident on the left than right which is probably due to sequela of old infarcts. There is some ill-defined low attenuation in the anterior left cerebellar hemisphere which is indeterminate. There is no evidence of hemorrhage. No masses are identified. No extra-axial fluid is seen. IMPRESSION: Chronic microvascular ischemia in the deep white matter bilaterally. Areas of decreased attenuation in the cerebellar hemispheres, probably due to encephalomalacia. Questionable area of subacute ischemia in the anterior left cerebellar hemisphere. Recommend diffusion-weighted MRI. Reviewed, Interpreted and Dictated by Shaji Arauz MD Transcribed by Denisa Felder Authenticated and [facility]
--- NOTE | 2022-12-17 15:19 | CT_ITS ---
FINAL REPORT TECHNIQUE: Axial images were obtained of the cervical spine by computed tomography. Coronal and sagittal reconstruction process performed. This study was performed with techniques to keep radiation doses as low as reasonably achievable (ALARA). Individualized dose reduction techniques using automated exposure control or adjustment of mA and/or kV according to the patient''s size were employed. CLINICAL HISTORY: fall anticoag FINDINGS: There is mild disc space narrowing at C4-5, C5-6, and C6-7. There is mild anterior osteophyte formation at C4-5, C5-6, and C6-7. The facets are properly aligned. No fracture is identified. There is moderate mucoperiosteal thickening in the right maxillary sinus consistent with chronic sinusitis. IMPRESSION: Degenerative changes without acute fracture. Reviewed, Interpreted and Dictated by Shaji Arauz MD Transcribed by Denisa Felder Authenticated and [facility]
[2022-12-17 15:22] LABS: Anion Gap 12.6 mEq/L (5-15); Blood Urea Nitrogen 16 mg/dl (7-17); Calcium 9.2 mg/dl (8.4-10.2); Carbon Dioxide 28 mmol/L (22.0-30.0); Chloride 103 mmol/L (98-107); Creatinine Clearance Estimated 111 mL/min (50-200); Estimated Glomerular Filt Rate 86 ml/min (>60); GFR (African American) 104 ML/MIN (>60); Glucose 172 mg/dl (74-100); Potassium 3.6 mmoL/L (3.5-5.1); Sodium 140 mmol/L (136-145)
--- NOTE | 2022-12-17 15:24 | PC.NURSE ---
Dr. Fernandez at BS for pt eval
[2022-12-17 15:25] LABS: Basophils % 0.3 % (0.1-2.0); Eosinophils % 0.3 % (0.1-12.0); Hematocrit 48.1 % (37.0-47.0); Hemoglobin 15.1 g/dL (12.2-16.2); Lymphocytes # 1.3 K/mm3 (0.7-4.5); Lymphocytes % 12.7 % (10-50); Mean Corpuscular HGB Conc 31.5 g/dL (31.8-35.4); Mean Corpuscular Hemoglobin 29.9 pg (27.0-31.2); Mean Corpuscular Volume 95.2 fl (81-99); Mean Platelet Volume 9.1 fl (7.4-10.4); Monocytes # 0.2 K/mm3 (0.1-1.0); Monocytes % 1.7 % (1.7-9.3); Neutrophils # 8.8 K/mm3 (1.8-7.8); Platelet Count 263 K/mm3 (142-424); Red Blood Count 5.05 M/mm3 (4.20-5.40); Red Cell Distribution Width 13.2 % (11.5-17.5); White Blood Count 10.4 K/mm3 (4.8-10.8)
[2022-12-17 15:26] LABS: Neutrophils % 84.9 % (37.0-80.0)
--- NOTE | 2022-12-17 15:27 | PC.NURSE ---
Pt gone to RAD via stretcher
--- NOTE | 2022-12-17 15:28 | CT_ITS ---
FINAL REPORT TECHNIQUE: NASCET technique utilized for stenosis evaluation. CLINICAL HISTORY: vertigo R sided, NGUYỄN FINDINGS: RIGHT CAROTID: No significant stenosis seen of the cervical common carotid artery. There is moderate vascular calcification of the proximal internal carotid artery. There is less than 50% stenosis. LEFT CAROTID: No significant stenosis seen of the cervical common carotid artery. There is moderate vascular calcification of the proximal internal carotid artery. There is less than 50% stenosis. VERTEBRALS: The vertebrals are patent. No significant stenosis is present. IMPRESSION: Moderate vascular calcification of the proximal internal carotid arteries bilaterally with less than 50% stenosis. Reviewed, Interpreted and Dictated by Shaji Arauz MD Transcribed by Denisa Felder Authenticated and . [facility]
--- NOTE | 2022-12-17 15:28 | CT_ITS ---
FINAL REPORT TECHNIQUE: After the administration of intravenous contrast, axial images were obtained through the abdomen and pelvis by computed tomography. The study was performed with techniques to keep radiation dose as low as reasonably achievable, (ALARA). Individual dose reduction techniques using automated exposure control or adjustment of mA and/or kV according to the patient's size were employed. CLINICAL HISTORY: diffuse abd pain FINDINGS: Abdomen: There is a calcified granuloma at the left base. There is a small sliding-type hiatal hernia. The liver parenchyma is homogeneous. The gallbladder is present. The spleen, pancreas, adrenals and kidneys appear unremarkable. The aorta is normal in caliber. There is no free fluid or adenopathy. Pelvis: The appendix is normal. There is questionable mild mucosal thickening of the sigmoid colon which may be related to mild colitis. The uterus is present eccentric to the left. The urinary bladder is unremarkable. There is no free fluid or adenopathy. IMPRESSION: Questionable mild sigmoid colitis. Small sliding-type hiatal hernia. Reviewed, Interpreted and Dictated by Shaji Arauz MD Transcribed by Denisa Felder Authenticated and [facility]
--- NOTE | 2022-12-17 15:28 | CT_ITS ---
FINAL REPORT TECHNIQUE: thin section axial CT with and without IV contrast supplemented with multiplanar 3-D reconstruction of the head. This study was performed with techniques to keep radiation doses as low as reasonably achievable, (ALARA)individualized dose reduction techniques using automated exposure control or adjustment of mA and/or kV according to the patient's size were employed. CLINICAL HISTORY: Nash NGUYỄN FINDINGS: There is no segmental stenosis. No aneurysm is identified. The left A1 segment is dominant. There is a patent right posterior communicating artery. There is moderate mucosal thickening of the right maxillary sinus. IMPRESSION: No large vessel occlusion is identified. Reviewed, Interpreted and Dictated by Shaji Arauz MD Transcribed by Denisa Felder Authenticated and . [facility]
--- NOTE | 2022-12-17 15:33 | HMH.EDGENADL ---
Discharge Plan Disposition Patient Disposition: Xfer Short-Term Hosp Chief Complaint: Nausea/Vomiting/Diarrhea Prescriptions Prescriptions: No Action cholecalciferol (vitamin D3) 50 mcg (2,000 unit) capsule 50 mcg PO DAILY Qty: 30 4RF cholecalciferol (vitamin D3) 1,250 mcg (50,000 unit) tablet 1,250 mcg PO WEEKLY Qty: 7 2RF levothyroxine 125 mcg tablet See Rx Instructions .ROUTE .COMPLEX Qty: 90 0RF Dose Instruction: TAKE ONE TABLET BY MOUTH ONCE A DAY Rx Instructions: TAKE ONE TABLET BY MOUTH ONCE A DAY ondansetron 4 mg tablet,disintegrating 4 mg PO Q6H PRN (Reason: nausea and vomiting) 5 Days Qty: 20 0RF Referrals Follow up/Referrals: Ge Palm MD [Primary Care Provider] - See instructions Clinical Impressions Clinical Impression: Acute CVA (cerebrovascular accident) Stand Alone Forms Stand Alone Forms: Transfer Record - ED Discharge ED Provider: Tobi Fernandez General Adult HPI General Chief complaint: Nausea/Vomiting/Diarrhea Stated complaint: N/V/D Time Seen by Provider: 12/17/22 15:01 Mode of Arrival: EMS Source of Information: Patient Limitations: No Limitations Description of Symptoms (Recalled from ER Triage Doc. by RN): Presents to ED with c/o N/V/D since 1000. Patient fell off the toilet and hit her head on the side of the sink. -LOC. Patient further reports lightheadedness and feels like her equalibrium is off . Denies cardiac hx. - blood thinner. History of Present Illness HPI narrative: Patient is a 57-year-old female with no chronic medical history who presents emergency department for evaluation of multiple complaints. Patient states she has had a posterior headache, vertigo alternating between the left and right, predominantly right-sided, nausea, vomiting, diarrhea that is nonbloody. Onset of symptoms was 5 to 7 days ago with the exception of diarrhea which has been over the last 24 to 48 hours. There is associated not localizable abdominal pain. No chest pain or vision changes. Patient has also suffered a ground-level fall while using the bathroom striking her head, no LOC. No other acute complaints at this time. Related Data Previous Rx's Medication Instructions Recorded cholecalciferol (vitamin D3) 1,250 1,250 mcg PO WEEKLY #7 tabs 09/10/22 mcg (50,000 unit) tablet cholecalciferol (vitamin D3) 50 50 mcg PO DAILY #30 caps 09/10/22 mcg (2,000 unit) capsule levothyroxine 125 mcg tablet See Rx Instructions .Route 10/14/22 .COMPLEX #90 tabs ondansetron 4 mg disintegrating 4 mg PO Q6H PRN nausea and 12/15/22 tablet vomiting 5 days #20 tabs Allergies Allergy/AdvReac Type Severity Reaction Status Date / Time pentazocine [From Enrikewin] Allergy Verified 09/09/22 13:32 Sulfa (Sulfonamide Allergy Verified 09/09/22 13:32 Antibiotics) [facility] Disclaimer: The information contained in this section may have been updated after the patient was seen, as this information can be updated by other users. Social History Smoking Status: Current some day smoker tobacco type: cigarettes packs per day: 1 alcohol intake: never substance use type: denies use current occupational status: other Travel in the last 8 weeks: None household members: family housing: house ROS Obtained: Yes Systems reviewed as appropriate & no additional complaints except as documented Physical Exam General General appearance: alert and in no apparent distress Head Head exam: atraumatic and normocephalic Eye Eye exam: Present PERRL and EOMI ENT ENT exam: Present mucous membranes moist Neck Neck exam: Present normal inspection Chest Chest inspection: Present normal inspection and symmetric chest wall rise Respiratory Respiratory exam: Present normal lung sounds bilaterally; Absent respiratory distress Cardiovascular Cardiovascular exam: Present regular rate and normal rhythm Abdominal
[2022-12-17 15:35] LABS: Troponin I < 0.01 ng/ml (0.00-0.034)
[2022-12-17 15:49] LABS: Magnesium 1.6 mg/dl (1.6-2.3)
[2022-12-17 15:58] LABS: Lipase 29 U/L (23-300)
--- NOTE | 2022-12-17 16:00 | PC.NURSE ---
Pt returned from RAD
[2022-12-17 16:05] LABS: Alanine Aminotransferase 37 U/L (12-78); Aspartate Amino Transferase 36 U/L (14-36); Bilirubin,Unconjugated 0.2 mg/dL (0.0-1.1)
[2022-12-17 16:06] LABS: Albumin Level 4.2 g/dl (3.5-5.0); Alkaline Phosphatase 84 U/L (38-126); Bilirubin,Direct 0.3 mg/dl (0.0-0.4); Bilirubin,Indirect 0.1 mg/dL (0.0-0.9); Bilirubin,Total 0.4 mg/dl (0.2-1.3); Total Protein,Serum 6.7 g/dl (6.3-8.2)
[2022-12-17 16:21] LABS: Appearance,Urine CLEAR (Clear); Bilirubin,Urine Negative (Negative); Blood, Urine Negative (Negative); Color,Urine YELLOW (Yellow); Glucose,Urine (UA) 1+ (Negative); Ketones,Urine Negative (Negative); Leukocyte Esterase,Urine Negative (Negative); Microscopic, Urine URINE MICROSCOPIC (MICROSCOPIC); Nitrate,Urine Negative (Negative); Protein,Urine Negative (Negative); Urobilinogen,Urine 0.2 EU/dl (0.2)
[2022-12-17 16:21] LABS: Thyroid Stimulating Hormone 0.08 uIU/mL (0.465-4.68)
--- NOTE | 2022-12-17 16:28 | PC.NURSE ---
NIHSS completed @ 0420 is a 2, d/t ataxia in both arms.
--- NOTE | 2022-12-17 16:30 | PC.NURSE ---
at bedside s/w pt & her daughter
[2022-12-17 16:31] LABS: Free T4 (Free Thyroxine) 1.68 ng/dl (0.78-2.19)
--- NOTE | 2022-12-17 16:32 | PC.NURSE ---
Spoke with Brandon at transfer center for possible transfer. Advised they would call back.
--- NOTE | 2022-12-17 16:50 | PC.NURSE ---
Dr. Fernandez speaking with [facility] at this time
--- NOTE | 2022-12-17 17:13 | PC.NURSE ---
Dr. Jim ghotra/ [facility] transfer center again
--- NOTE | 2022-12-17 17:30 | PC.NURSE ---
report called to erin ED charge nurse at [facility]
== END 2022-12-17 18:45 | disposition short-term general hospital (02) ==
PROVIDERS: Emergency Provider Emergency Medicine; PCP Emergency Medicine
DX: I63.9 Cerebral infarction, unspecified (principal); R51.9 Headache, unspecified; R11.2 Nausea with vomiting, unspecified; R19.7 Diarrhea, unspecified; F17.210 Nicotine dependence, cigarettes, uncomplicated; R00.1 Bradycardia, unspecified; W18.12XA Fall from or off toilet with subsequent striking against object, initial encounter
CPT/HCPCS: 70450; 70496; 70498; 71045; 72125; 74177; 80048; 80076; 81001; 83690; 83735; 84439; 84443; 84484; 85025; 93005; 96361; 96374; 96375; 99291; J0131; J2405; Q9967

== ENCOUNTER 2023-02-12 13:29 | Emergency (ER) | payer MEDICARE, SELFPAY ==
[2023-02-12 13:30] VITALS: BP 120/82; PULSE 79; RESP 17; TEMP 36.7; O2SAT 98; BMI 30.4
--- NOTE | 2023-02-12 13:44 | PC.NURSE ---
Dr. Fernandez at bedside s/w pt & her daughter
--- NOTE | 2023-02-12 13:44 | PC.NURSE ---
Dr. Fernandez at BS for pt eval
--- NOTE | 2023-02-12 13:57 | CT_ITS ---
PROCEDURE INFORMATION: Exam: CTA Neck With Contrast Exam date and time: 02/12/2023 2:35 PM Age: 57 years old Clinical indication: Numbness; Additional info: Lle numb TECHNIQUE: Imaging protocol: Computed tomographic angiography of the neck with contrast. Exam focused on the cervical segments of the vasculature. 3D rendering (Not supervised by radiologist): MIP and/or 3D reconstructed images were created by the technologist. Radiation optimization: All CT scans at this facility use at least one of these dose optimization techniques: automated exposure control; mA and/or kV adjustment per patient size (includes targeted exams where dose is matched to clinical indication); or iterative reconstruction. Contrast material: ISOVUE 370; Contrast volume: 100 ml; Contrast route: INTRAVENOUS (IV); REPORTING DATA: Count of CT and Cardiac NM exams in prior 12 months: This patient has received 5 known CTs and 0 known cardiac nuclear medicine studies in the 12 months prior to the current study. COMPARISON: CT ANGIO NECK 12/17/2022 3:43 PM FINDINGS: Right common carotid artery: No stenosis. No dissection or occlusion. Right internal carotid artery: Mild spotty calcified plaque origin right ICA without significant stenosis. Right external carotid artery: No occlusion or stenosis of the origin. Left common carotid artery: No stenosis. No dissection or occlusion. Left internal carotid artery: Mild spotty calcified plaque origin left ICA without significant stenosis. Left external carotid artery: No occlusion or stenosis of the origin. Right vertebral artery: Right vertebral artery hypoplastic but patent. Left vertebral artery: No stenosis. No dissection or occlusion. Soft tissues: Normal. No significant soft tissue swelling. Bones/joints: No acute fracture. IMPRESSION: No large vessel occlusion or stenosis. REFERENCES: NASCET CRITERIA. The degree of stenosis in the cervical segment of the internal carotid artery is based on NASCET criteria. Normal is no stenosis. Mild is less than 50% stenosis. Moderate is 50-69% stenosis. Severe is 70% to 99% stenosis. Total occlusion is no detectable patent lumen.
--- NOTE | 2023-02-12 13:57 | CT_ITS ---
PROCEDURE INFORMATION: Exam: CT Head Without Contrast Exam date and time: 02/12/2023 2:32 PM Age: 57 years old Clinical indication: Numbness / parasthesia; Left; Additional info: Lle numb. HX of stroke earlier this year. TECHNIQUE: Imaging protocol: Computed tomography of the head without contrast. Radiation optimization: All CT scans at this facility use at least one of these dose optimization techniques: automated exposure control; mA and/or kV adjustment per patient size (includes targeted exams where dose is matched to clinical indication); or iterative reconstruction. REPORTING DATA: Count of CT and Cardiac NM exams in prior 12 months: This patient has received 5 known CTs and 0 known cardiac nuclear medicine studies in the 12 months prior to the current study. COMPARISON: CT ANGIO HEAD 12/17/2022 3:43 PM FINDINGS: Brain: Large old left cerebellar infarct with associated encephalomalacia and smaller right inferior cerebellar infarct also no compelling evidence of acute infarct. No evidence of intracranial hemorrhage. Remainder of the cortical sulci are unremarkable for age. Cerebral ventricles: Unremarkable for age. Paranasal sinuses: Visualized sinuses are unremarkable. No fluid levels. Mastoid air cells: Visualized mastoid air cells are well aerated. Bones/joints: Unremarkable. No acute fracture. Soft tissues: Unremarkable. IMPRESSION: 1. No acute intracranial abnormalities. 2. Old bilateral cerebellar infarcts larger on the left.
--- NOTE | 2023-02-12 13:57 | CT_ITS ---
PROCEDURE INFORMATION: Exam: CTA Head With Contrast, Arteriography Exam date and time: 02/12/2023 2:35 PM Age: 57 years old Clinical indication: Numbness; Additional info: Lle numb, HX of stroke earlier this year. TECHNIQUE: Imaging protocol: Computed tomographic angiography of the head with contrast. Exam focused on the arteries. 3D rendering (Not supervised by radiologist): MIP and/or 3D reconstructed images were created by the technologist. Radiation optimization: All CT scans at this facility use at least one of these dose optimization techniques: automated exposure control; mA and/or kV adjustment per patient size (includes targeted exams where dose is matched to clinical indication); or iterative reconstruction. Contrast material: ISOVUE 370; Contrast volume: 100 ml; Contrast route: INTRAVENOUS (IV); REPORTING DATA: Count of CT and Cardiac NM exams in prior 12 months: This patient has received 5 known CTs and 0 known cardiac nuclear medicine studies in the 12 months prior to the current study. COMPARISON: CT ANGIO HEAD 12/17/2022 3:43 PM FINDINGS: ANTERIOR CIRCULATION: Right internal carotid artery: Intracranial segment is patent with no significant stenosis. No aneurysm. Right middle cerebral artery: No occlusion or significant stenosis. No aneurysm. Right anterior cerebral artery: No occlusion or significant stenosis. No aneurysm. Left internal carotid artery: Intracranial segment is patent with no significant stenosis. No aneurysm. Left middle cerebral artery: No occlusion or significant stenosis. No aneurysm. Left anterior cerebral artery: No occlusion or significant stenosis. No aneurysm. POSTERIOR CIRCULATION: Right vertebral artery: Terminal segment right vertebral artery is occluded with some retrograde filling distally, unchanged. Left vertebral artery: Terminal segment left vertebral artery is occluded with some retrograde filling more distally, unchanged. Basilar artery: Basilar artery is patent. Right posterior cerebral artery: No occlusion or significant stenosis. No aneurysm. Left posterior cerebral artery: No occlusion or significant stenosis. No aneurysm. Brain: No intracranial hemorrhage, mass effect, or midline shift. Bilateral old cerebellar infarcts larger on the left again demonstrated. Cerebral ventricles: No ventriculomegaly. Bones/joints: Unremarkable. No acute fracture. Soft tissues: Unremarkable. IMPRESSION: 1. Unremarkable CTA of the anterior cerebral circulation. 2. 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 3. Patency of the basilar artery.
--- NOTE | 2023-02-12 13:57 | HMH.EDGENADL ---
Discharge Plan Disposition Patient Disposition: Home, Self-Care Chief Complaint: Ear Prescriptions Prescriptions: New ofloxacin 0.3 % drops 5 drp otic (ear) BID 10 Days Qty: 10 0RF amoxicillin 500 mg tablet 1,000 mg PO TID 10 Days Qty: 60 0RF No Action cholecalciferol (vitamin D3) 50 mcg (2,000 unit) capsule 50 mcg PO DAILY Qty: 30 4RF cholecalciferol (vitamin D3) 1,250 mcg (50,000 unit) tablet 1,250 mcg PO WEEKLY Qty: 7 2RF levothyroxine 125 mcg tablet See Rx Instructions .ROUTE .COMPLEX Qty: 90 0RF Dose Instruction: TAKE ONE TABLET BY MOUTH ONCE A DAY Rx Instructions: TAKE ONE TABLET BY MOUTH ONCE A DAY fluoxetine [Prozac] 20 mg capsule 20 mg PO DAILY Qty: 90 1RF ondansetron 4 mg tablet,disintegrating 4 mg PO Q6H PRN (Reason: nausea and vomiting) 5 Days Qty: 20 0RF Referrals Follow up/Referrals: Tiffanie Bradley APRN [Nurse Practitioner] - See instructions Haroon Townsend DO [Primary Care Provider] - See instructions Provider,Referral, [Referring] - See instructions Activity Restrictions/Add. Instructions Additional Instructions/Restrictions: At this time it was felt you are safe to be discharged home. If new or worsening symptoms please do not hesitate to return the emergency department. Please call and schedule an appointment with both ear nose and throat and Dr. Townsend as soon as you are able. Clinical Impressions Clinical Impression: Left otitis media with spontaneous rupture of eardrum, Left leg paresthesias Discharge ED Provider: Tboi Fernandez General Adult HPI General Chief complaint: Ear Stated complaint: Weakness Time Seen by Provider: 02/12/23 13:36 Mode of Arrival: Family Vehicle Source of Information: Patient, Relative and Medical Record Limitations: No Limitations Description of Symptoms (Recalled from ER Triage Doc. by RN): Pt c/o left ear drainage, appearance of dried blood from her left ear. Pt's daughter states her mother has new numbness to her LLE. Per pt, left face and LLE numbness is present since last CVA 11/2022. NIHSS 0 at this time. Denies any hearing deficits. History of Present Illness HPI narrative: Patient is a 57-year-old female with past medical history of restless leg syndrome, lower extremity neuropathy, CVA who presents emergency department for evaluation of multiple complaints. Patient has had left-sided ear pain with acute onset bleeding from her left ear causing her to present here for evaluation. Patient has also had left lower extremity numbness over the dorsal aspect and plantar aspect of her left foot. She does have a history of this previously however has not had any symptoms as of late and due to the acute onset with history of previous CVA she presents here for continued evaluation. Related Data Previous Rx's Medication Instructions Recorded cholecalciferol (vitamin D3) 1,250 1,250 mcg PO WEEKLY #7 tabs 09/10/22 mcg (50,000 unit) tablet cholecalciferol (vitamin D3) 50 50 mcg PO DAILY #30 caps 09/10/22 mcg (2,000 unit) capsule levothyroxine 125 mcg tablet See Rx Instructions .Route 10/14/22 .COMPLEX #90 tabs ondansetron 4 mg disintegrating 4 mg PO Q6H PRN nausea and 12/15/22 tablet vomiting 5 days #20 tabs fluoxetine 20 mg capsule (Prozac) 20 mg PO DAILY #90 caps 02/09/23 amoxicillin 500 mg tablet 1,000 mg PO TID otitis media 10 02/12/23 days #60 tabs ofloxacin 0.3 % ear drops 5 drp otic (ear) BID ear infection 02/12/23 10 days #10 mL Allergies Allergy/AdvReac Type Severity Reaction Status Date / Time pentazocine [From Reyna] Allergy Verified 09/09/22 13:32 Sulfa (Sulfonamide Allergy Verified 09/09/22 13:32 Antibiotics) [facility] Disclaimer: The information contained in this section may have been updated after the patient was seen, as this information can be updated by other users. Social History Smoking Status: For
[2023-02-12 14:00] VITALS: BP 100/70; PULSE 70; O2SAT 91
[2023-02-12 14:21] LABS: Basophils # 0.1 K/mm3 (0-0.2); Basophils % 0.9 % (0.1-2.0); Eosinophils # 0.2 K/mm3 (0.0-0.4); Eosinophils % 3.6 % (0.1-12.0); Hematocrit 42.9 % (37.0-47.0); Hemoglobin 14.3 g/dL (12.2-16.2); Lymphocytes % 31.9 % (10-50); Mean Corpuscular HGB Conc 33.4 g/dL (31.8-35.4); Mean Corpuscular Hemoglobin 31.7 pg (27.0-31.2); Mean Corpuscular Volume 94.8 fl (81-99); Mean Platelet Volume 8.6 fl (7.4-10.4); Monocytes # 0.2 K/mm3 (0.1-1.0); Neutrophils # 3.8 K/mm3 (1.8-7.8); Neutrophils % 60.6 % (37.0-80.0); Platelet Count 252 K/mm3 (142-424); Red Blood Count 4.52 M/mm3 (4.20-5.40); Red Cell Distribution Width 13.7 % (11.5-17.5); White Blood Count 6.3 K/mm3 (4.8-10.8)
[2023-02-12 14:26] LABS: Chloride 105 mmol/L (98-107); Potassium 4.1 mmoL/L (3.5-5.1); Sodium 141 mmol/L (136-145)
[2023-02-12 14:29] LABS: Alanine Aminotransferase 38 U/L (12-78); Albumin Level 4.4 g/dl (3.5-5.0); Albumin/Globulin Ratio 1.5 (1.1-1.8); Alkaline Phosphatase 76 U/L (38-126); Anion Gap 10.1 mEq/L (5-15); Aspartate Amino Transferase 34 U/L (14-36); Bilirubin,Total 0.5 mg/dl (0.2-1.3); Blood Urea Nitrogen 22 mg/dl (7-17); Calcium 9.4 mg/dl (8.4-10.2); Carbon Dioxide 30 mmol/L (22.0-30.0); Creatinine Clearance Estimated 97 mL/min (50-200); Estimated Glomerular Filt Rate 74 ml/min (>60); GFR (African American) 89 ML/MIN (>60); Globulin 2.9 g/dL (1.3-3.2); Glucose 144 mg/dl (74-100); Total Protein,Serum 7.3 g/dl (6.3-8.2)
--- NOTE | 2023-02-12 14:29 | PC.NURSE ---
Pt gone to RAD via stretcher
[2023-02-12 14:30] LABS: Magnesium 1.8 mg/dl (1.6-2.3)
--- NOTE | 2023-02-12 14:33 | HMH.ITSTN ---
GFR completion/results were overrode for the use of contrast media by the Physician on a risk vs. benefit situation with this patient.
[2023-02-12 15:00] VITALS: BP 100/68; PULSE 80; O2SAT 96
--- NOTE | 2023-02-12 15:20 | PC.NURSE ---
Dr. Fernandez at discussing results with pt and family
[2023-02-12 15:43] VITALS: BP 116/72; PULSE 81; RESP 20; TEMP 36.7; O2SAT 94
--- NOTE | 2023-02-12 15:56 | PC.NURSE ---
[facility] pharmacy called to clarify amoxicillin dosing. notified dr. saucedo- states to change prescription to from tid to BID.
== END 2023-02-12 15:48 | disposition home or self-care (01) ==
PROVIDERS: Emergency Provider Emergency Medicine; PCP Internal Medicine
DX: R20.2 Paresthesia of skin; R53.1 Weakness; Z86.73 Personal history of transient ischemic attack (TIA), and cerebral infarction without residual deficits; Z87.891 Personal history of nicotine dependence; H66.012 Acute suppurative otitis media with spontaneous rupture of ear drum, left ear
CPT/HCPCS: 70450; 70496; 70498; 80053; 83735; 85025; 99284; Q9967

== ENCOUNTER → 2023-02-28 08:45 | Outpatient (CLI) | payer MEDICARE, SELFPAY ==
--- NOTE | 2023-02-28 08:46 | CT_ITS ---
FINAL REPORT TECHNIQUE: Axial CT images of the chest were obtained without contrast. Low-dose protocol was utilized. This study was performed with techniques to keep radiation doses as low as reasonably achievable (ALARA). Individualized dose reduction techniques using automated exposure control or adjustment of mA and/or kV according to the patient's size were employed. CLINICAL HISTORY: lung cancer screening CURRENT SMOKER 2PPD X45 YEARS COMPARISON: None FINDINGS: CT CHEST WITHOUT, LOW DOSE SCREENING CT Di Vol: 2.90 mGy DLP: 86.73 mGy*cm There is no axillary, mediastinal, or hilar adenopathy. The heart size is normal. There are severe left coronary artery calcifications. There is an enlarged azygos vein of uncertain significance which could represent azygous continuation of the inferior vena cava as a variant. There is no pleural or pericardial effusion. The lung windows show no suspicious mass or nodule. There are several calcified granulomas. Limited images of the upper abdomen demonstrate no acute findings. IMPRESSION: LR Category 1S: 12 month follow-up low-dose chest CT is recommended. Modifier S: Severe left coronary artery calcifications. Reviewed, Interpreted and Dictated by Terrance Corado III, MD Transcribed by Bette Frederick Authenticated and . [facility]
== END ==
PROVIDERS: PCP Internal Medicine; Visit Provider Internal Medicine
DX: Z87.891 Personal history of nicotine dependence (principal); Z12.2 Encounter for screening for malignant neoplasm of respiratory organs
CPT/HCPCS: 71271

== ENCOUNTER 2023-03-30 15:45 | Outpatient (CLI) | payer MEDICARE, SELFPAY | END 2023-03-30 23:59 | LOC: RT 15:46 | PROVIDERS: PCP Internal Medicine; Visit Provider Internal Medicine | DX: R07.9 Chest pain, unspecified (principal); R06.00 Dyspnea, unspecified; R94.31 Abnormal electrocardiogram [ECG] [EKG]; I11.9 Hypertensive heart disease without heart failure; I25.10 Atherosclerotic heart disease of native coronary artery without angina pectoris; I25.84 Coronary atherosclerosis due to calcified coronary lesion; R42 Dizziness and giddiness; E78.5 Hyperlipidemia, unspecified; Z72.0 Tobacco use | CPT/HCPCS: 93225 ==

== ENCOUNTER 2023-04-12 12:34 | Outpatient (CLI) | payer MEDICARE, SELFPAY ==
--- NOTE | 2023-04-12 12:34 | CA_ITS ---
APPROVED REPORT EXAM: Comprehensive 2D, Doppler, and color-flow Echocardiogram Fingerer: Lolis Chang RVT Ht: 5 ft 4 in Wt: 165lbs BSA: 1.80 BP: 111/70 mmHg Indications: CP,SOA,CAD,ABN EKG,SMOKER TDS-LIMITED WINDOWS 2D Dimensions LA Volume 25.60 mL LA Volume Index 14.22 mL/m2 (M/F) 16-34 M-Mode Dimensions RVDd 3.76 cm (0.9-2.6) LA Diam 3.47 cm (1.9-4.0) LVDd 4.28 cm (3.5-5.7) LVDs 3.12 cm (3.5-5.7) IVSd 0.92 cm (0.6-1.1) PWd 0.56 cm (0.6-1.1) EF (Teich) 53.20% FS 27.10% EDV (Teich) 82.20 mL TAPSE 1.52 (<1.7) ESV (Teich) 38.50 mL LV Diastology E Decel Time 190 (160-240 msec) E/A Ratio 0.7 Aortic Valve RAPHAEL Index 1.51 cm2/m2 AoV Peak Martinez. 99.0 (50-130 cm/s) AO Peak GR. 3.90 mmHg AO Mean GR. 2.20 (<5 mmHg) AO VTI 17.5 (18-25 cm) RAPHAEL (VTI) 2.79 (2.5-4.5 cm2) Mitral Valve MV E Max Martinez. 53.0 (40-130 cm/s) MV A Velocity 71.0 (40-130 cm/s) E/A Ratio 0.75 MV PHT 56.0 ms Pulmonary Valve PV Peak Velocity 57.0 (50-150 cm/s) Left Ventricle The left ventricle is normal size. The left ventricular systolic function is normal. The left ventricular ejection fraction is within the normal range. There is normal left ventricular wall thickness. There is normal global LV systolic function. There is mild hypokinesis of the basal septal and inferoseptal LV conde. The left ventricular diastolic function is normal. LVEF is 55%. Right Ventricle The right ventricle is normal size. The right ventricular systolic function is normal. Atria The left atrium size is normal. The right atrium size is normal. There is no Doppler evidence of interatrial shunt. Aortic Valve The aortic valve is mildly thickened. There is no aortic valvular stenosis. No aortic regurgitation is present. Mitral Valve The mitral valve leaflets are mildly thickened. No evidence of mitral valve stenosis. There is no mitral valve regurgitation noted. Tricuspid Valve The tricuspid valve leaflets are thin and pliable. Trace tricuspid regurgitation. There is insufficient TR jet to estimate RVSP. Pulmonic Valve The pulmonic valve is not well-visualized. Great Vessels The aortic root is normal in size. The ascending aorta is not well-visualized. IVC is normal in size and collapses >50% with inspiration. Pericardium There is no pericardial effusion. Other Information Study Quality: Technically Difficult Conclusion Technically difficult study due to poor acoustic windows. Normal biventricular systolic function. Mild hypokinesis of the basal septal and inferoseptal LV conde. No significant valvular stenosis or regurgitation. Electronically signed by : Haven Burgess MD 04/14/2023 02:29:35
== END 2023-04-12 23:59 ==
LOC: RT 12:34
PROVIDERS: PCP Internal Medicine; Visit Provider Internal Medicine
DX: E78.5 Hyperlipidemia, unspecified (principal); I10 Essential (primary) hypertension; I25.10 Atherosclerotic heart disease of native coronary artery without angina pectoris; I25.84 Coronary atherosclerosis due to calcified coronary lesion; R00.2 Palpitations; R06.00 Dyspnea, unspecified; R07.9 Chest pain, unspecified; R42 Dizziness and giddiness; R94.31 Abnormal electrocardiogram [ECG] [EKG]; Z72.0 Tobacco use
CPT/HCPCS: 93306

== ENCOUNTER 2023-04-25 11:00 | Emergency (ER) | payer MEDICARE, SELFPAY ==
[2023-04-25 11:01] VITALS: BP 118/65; PULSE 58; RESP 19; TEMP 36.4; O2SAT 93; BMI 29.2
[2023-04-25 11:30] VITALS: BP 105/66; PULSE 56; O2SAT 94
--- NOTE | 2023-04-25 11:38 | CT_ITS ---
FINAL REPORT TECHNIQUE: Axial images were obtained from skull base to the thoracic inlet by computed tomography. Coronal and sagittal reconstruction process performed. This study was performed with techniques to keep radiation doses as low as reasonably achievable (ALARA). Individualized dose reduction techniques using automated exposure control or adjustment of mA and/or kV according to the patient''s size were employed. CLINICAL HISTORY: dizziness, balance issues, fall + head injury FINDINGS: There is no acute fracture or subluxation. There is mild, diffuse degenerative disc disease. The facets are normally aligned. The soft tissues are unremarkable. Limited images of the lung apices are unremarkable. IMPRESSION: No acute fracture. Reviewed, Interpreted and Dictated by Noris Dickson MD Transcribed by Baylee Richard Authenticated and . [facility]
--- NOTE | 2023-04-25 11:38 | CT_ITS ---
FINAL REPORT CLINICAL HISTORY: dizziness, balance issues, fall + head injury FINDINGS: CTA HEAD TECHNIQUE: Thin section axial CT with contrast with 3D MIP reconstruction. This study was performed with techniques to keep radiation doses as low as reasonably achievable (ALARA). Individualized dose reduction techniques using automated exposure control or adjustment of mA and/or kV according to the patient's size were employed. FINDINGS: There is aplastic A1 segment on the right side as a normal variant. There is a large right posterior communicating artery which supplies most of the flow to the right JEWELRY TECHNICIAN, as a normal variant. No aneurysm is seen. Major intracranial vessels are patent without significant stenosis. IMPRESSION: Unremarkable This study was performed using automated techniques to achieve radiation exposure as low as reasonably achievable Reviewed, Interpreted and Dictated by Noris Dickson MD Transcribed by Baylee Richard Authenticated and [facility]
--- NOTE | 2023-04-25 11:38 | CT_ITS ---
FINAL REPORT CLINICAL HISTORY: dizziness, balance issues, fall + head injury FINDINGS: CT NECK ANGIO, WITHOUT AND WITH CONTRAST TECHNIQUE: Thin section axial CT with IV contrast supplemented with 3D MIP reconstruction NASCET criteria and technique was utilized during interpretation. This study was performed with techniques to keep radiation doses as low as reasonably achievable (ALARA). Individualized dose reduction techniques using automated exposure control or adjustment of mA and/or kV according to the patient's size were employed. FINDINGS: Mild calcified plaque is seen at the carotid bifurcations without measurable stenosis. Aortic arch: Arch shows no significant narrowing. Great vessel origins are widely patent. Right carotid: No significant stenosis is seen of the cervical common or internal carotid artery. Left carotid: No significant stenosis is seen of the cervical common or internal carotid artery. Vertebrals: Left vertebral artery is slightly dominant. No significant stenosis is present. IMPRESSION: No significant stenosis of the cervical carotid arteries This study was performed using automated techniques to achieve radiation exposure as low as reasonably Reviewed, Interpreted and Dictated by Noris Dickson MD Transcribed by Baylee Richard Authenticated and [facility]
--- NOTE | 2023-04-25 11:38 | CT_ITS ---
FINAL REPORT TECHNIQUE: Noncontrast exam CLINICAL HISTORY: dizziness, balance issues, fall + head injury FINDINGS: There is an old left cerebellar infarct involving essentially the entire left CONSULTING NURSE. Chronic lacunar infarcts are seen in the central right cerebellum. No abnormal density is seen. Ventricles are normal. There is no hemorrhage. No mass effect is seen. Bone windows show no evidence of fracture. IMPRESSION: Chronic cerebellar infarcts which may account for patient's symptoms. No acute intracranial abnormality. Reviewed, Interpreted and Dictated by Noris Dickson MD Transcribed by Baylee Richard Authenticated and [facility]
--- NOTE | 2023-04-25 11:41 | CT_ITS ---
FINAL REPORT TECHNIQUE: Postcontrast axial images of the chest were performed in a CTA protocol. This study was performed with techniques to keep radiation doses as low as reasonably achievable, (ALARA). Individualized dose reduction technique using automated exposure control or adjustment of mA and/or kV according to the patient's size were employed. CLINICAL HISTORY: cough, hypoxia, dizziness + falls FINDINGS: The heart is normal in size. There is azygous vein prominence which can be congenital or related to a central venous occlusion within the abdomen or elevated central venous pressures. No adenopathy is identified. No pleural or pericardial effusion is identified. The thoracic aorta is normal in caliber with no focal aneurysm or dissection identified. There is no filling defect to suggest pulmonary embolism. No lung infiltrate or mass is identified. The images of the upper abdomen are unremarkable. IMPRESSION: No evidence for PE on this exam. Reviewed, Interpreted and Dictated by Noris Dickson MD Transcribed by Baylee Richard Authenticated and [facility]
[2023-04-25 11:51] LABS: Alanine Aminotransferase 42 U/L (12-78); Albumin/Globulin Ratio 1.4 (1.1-1.8); Alkaline Phosphatase 84 U/L (38-126); Anion Gap 11.8 mEq/L (5-15); Aspartate Amino Transferase 41 U/L (14-36); Bilirubin,Total 0.4 mg/dl (0.2-1.3); Blood Urea Nitrogen 25 mg/dl (7-17); Calcium 9.2 mg/dl (8.4-10.2); Carbon Dioxide 27 mmol/L (22.0-30.0); Chloride 105 mmol/L (98-107); Creatinine Clearance Estimated 83 mL/min (50-200); Estimated Glomerular Filt Rate 64 ml/min (>60); GFR (African American) 78 ML/MIN (>60); Globulin 2.8 g/dL (1.3-3.2); Glucose 122 mg/dl (74-100); Potassium 3.8 mmoL/L (3.5-5.1); Sodium 140 mmol/L (136-145); Total Protein,Serum 6.8 g/dl (6.3-8.2)
--- NOTE | 2023-04-25 11:59 | ECG_ITS ---
APPROVED REPORT Exam: Resting ECG HR:50 bpm ECG Measurements Heart Rate 50 AXES WA 183 P 60 QRSd 78 QRS 39 QT 440 T 47 QTc 414 Conclusion SINUS BRADYCARDIA LOW QRS VOLTAGE IN PRECORDIAL LEADS [QRS DEFLECTION < 1.0 mV IN CHEST LEADS] BORDERLINE ECG UNCONFIRMED REPORT Electronically signed by : Jaspreet Alvarez MD 04/26/2023 16:41:40
[2023-04-25 12:00] VITALS: BP 117/74; PULSE 55; O2SAT 94
[2023-04-25 12:00] LABS: NT Pro Brain Natriuretic Pep. 56.3 pg/mL (0-125)
--- NOTE | 2023-04-25 12:03 | [facility].EDGENADL ---
Discharge Plan Disposition Patient Disposition: Home, Self-Care Condition: Good Prescriptions Prescriptions: No Action losartan 25 mg tablet 25 mg PO DAILY Qty: 30 2RF cholecalciferol (vitamin D3) 50 mcg (2,000 unit) capsule 50 mcg PO DAILY Qty: 30 4RF fluoxetine [Prozac] 20 mg capsule 20 mg PO DAILY Qty: 90 1RF levothyroxine 100 mcg tablet 100 mcg PO DAILY Qty: 90 0RF ondansetron 4 mg tablet,disintegrating 4 mg PO Q6H PRN (Reason: nausea and vomiting) 5 Days Qty: 20 0RF aspirin [Adult Aspirin Regimen] 81 mg tablet,delayed release (DR/EC) 81 mg PO DAILY Qty: 90 3RF albuterol sulfate 90 mcg/actuation aerosol powdr breath activated 2 inh inhalation Q6H PRN (Reason: shortness of breath) Qty: 1 0RF fluconazole 150 mg tablet 150 mg PO Q3D Qty: 2 0RF pantoprazole 40 mg tablet,delayed release (DR/EC) See Rx Instructions .ROUTE .COMPLEX Qty: 30 0RF Dose Instruction: TAKE ONE TABLET BY MOUTH ONCE A DAY Rx Instructions: TAKE ONE TABLET BY MOUTH ONCE A DAY atorvastatin 40 mg tablet See Rx Instructions .ROUTE .COMPLEX Qty: 30 0RF Dose Instruction: TAKE ONE TABLET BY MOUTH ONCE A DAY Rx Instructions: TAKE ONE TABLET BY MOUTH ONCE A DAY Referrals Follow up/Referrals: Haroon Townsend DO [Primary Care Provider] - See instructions Activity Restrictions/Add. Instructions Additional Instructions/Restrictions: You were evaluated in the emergency department today. 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 Return to the emergency department for new or worsening symptoms. Clinical Impressions Clinical Impression: Fall, Dizziness Instructions Patient Instructions: How to Prevent Falls Discharge ED Provider: Alejandra Gutierrez General Adult HPI General Chief complaint: Fall Stated complaint: AO [id number] @10:40 fell and hit head and rt side Time Seen by Provider: 04/25/23 11:09 Mode of Arrival: Wheelchair Source of Information: Patient and Relative Limitations: No Limitations Description of Symptoms (Recalled from ER Triage Doc. by RN): 57 yo F presents to ED for fall and dizziness. pts daughter reports pt had fall this am. pt reports small knot on back right side of head. pt reports feel dizzy ongoing for 1 week. History of Present Illness HPI narrative: This patient is a 57-year-old female with a history of CVA with residual intermittent dizziness, hypertension, hypothyroidism, COPD, hyperlipidemia, BARBARA, anxiety and depression presented to the emergency department for evaluation with concern for fall. Patient's daughter reports that she fell today and hit her head. She did not lose consciousness and has been alert and oriented since, however daughter expresses significant concern given that she takes aspirin and has history of blood clot in her brain from her prior stroke. She states she was concerned with her blood clots could have migrated. Of note, the patient is currently being worked up for intermittent dizziness is been persistent since the stroke. She is undergoing cardiology workup including echocardiogram and potential heart cath. She said that she is not worried about the dizziness as much, as this has been ongoing, but with the fall she was worried that she could have injured her brain. Patient denies any concerns or complaints at this time and said that she is feeling okay. She does note that she has had cough since the stroke, which the daughter states was deemed to be due to her lisinopril which they have decreased. No fevers, chills, vision changes, numbness, tingling, weakness, or other concerns. Related Data Previous Rx's Medication Instructions Recorded aspirin 81 mg tablet,delayed 81 mg PO DAILY #90 tabs 02/15/23 release (Adult Aspirin Regimen) cholecalciferol (vitamin D3) 50 50 mcg PO DAILY #30 caps 02/15/23 mcg (2,000 unit) capsule fluoxetine 20 mg capsule (Prozac) 20 mg PO DAILY #90 caps 02/15/23 levothyroxine 100 mcg tablet 100 mcg PO DAILY #90 tabs 02/15/23 ondansetron 4 mg disintegrating 4 mg PO Q6H PRN nausea and 02/15/23 tablet vomiting 5 days #20 tabs albuterol sulfate 90 mcg/actuation 2 inh inhalation Q6H PRN shortness 03/16/23 breath activated powder inhaler of breath #1 ea fluconazole 150 mg tablet 150 mg PO Q3D 2 doses #2 tabs 03/16/23 losartan 25 mg tablet 25 mg PO DAILY #30 tabs 03/30/23 atorvastatin 40 mg tablet See Rx Instructions .Route 04/12/23 .COMPLEX #30 tabs pantoprazole 40 mg tablet,delayed See Rx Instructions .Route 04/12/23 release .COMPLEX #30 tabs Allergies Allergy/AdvReac Type Severity Reaction Status Date / Time pentazocine [From [facility]win] Allergy Verified 04/25/23 11:21 Sulfa (Sulfonamide Allergy Verified 04/25/23 11:21 Antibiotics) lisinopril AdvReac Mild cough Uncoded 03/30/23 15:21 [facility] Disclaimer: The information contained in this section may have been updated after the patient was seen, as this information can be updated by other users. Social History Smoking Status: Former smoker tobacco type: cigarettes packs per day: 1 alcohol intake: never substance use type: denies use current occupational status: other Travel in the last 8 weeks: None household members: family housing: house ROS Obtained: Yes All systems reviewed & no additional complaints except as documented Physical Exam General General appearance: alert and in no apparent distress Head Head exam: atraumatic and normocephalic Eye Eye exam: Present normal appearance, PERRL and EOMI ENT ENT exam: Present normal exam, normal oropharynx, mucous membranes moist and normal external ear exam Neck Neck exam: Present normal inspection, full ROM and trachea midline; Absent tenderness Chest Chest inspection: Present normal inspection and symmetric chest wall rise; Absent tenderness Respiratory Respiratory exam: Present normal lung sounds bilaterally; Absent respiratory distress, wheezes, stridor or accessory muscle use Cardiovascular Cardiovascular exam: Present regular rate and normal rhythm Abdominal Exam Abdominal exam: Present soft; Absent distention, tenderness or guarding Extremities Exam Extremities exam: Present normal inspection, full ROM and normal capillary refill; Absent tenderness or edema Back Exam Back exam: Present normal inspection and full ROM; Absent tenderness Neurological Exam Neurological exam: Present alert, oriented X3, CN II-XII intact and normal gait; Absent motor sensory deficit Psychiatric Psychiatric exam: Present normal affect and normal mood Skin Skin exam: Present warm and dry Medical Decision Making Medical Records Medical records reviewed: Yes I reviewed the patient's medical records. Juan Inquiry Pt receiving controlled substance: No Vital Signs: 04/25/23 11:01 04/25/23 11:30 04/25/23 12:00 Temperature 97.5 F L Temperature Source Oral Pulse Rate 56 L 55 L Pulse Rate [Left Radial] 58 L Respiratory Rate 19 Blood Pressure 105/66 L 117/74 Blood Pressure [Right Arm] 118/65 Blood Pressure Mean 74 88 Blood Pressure Mean [Right Arm] 82 Blood Pressure Source Blood Pressure Position 02 Sat by Pulse Oximetry 93 L 94 L 94 L Oxygen Delivery Method Room Air 04/25/23 13:01 04/25/23 13:55 Temperature 98.3 F Temperature Source Oral Pulse Rate 55 L 57 L Pulse Rate [Left Radial] Respiratory Rate 18 Blood Pressure 149/86 H 160/92 H Blood Pressure [Right Arm] Blood Pressure Mean Blood Pressure Mean [Right Arm] Blood Pressure Source Automatic Cuff Blood Pressure Position Supine 02 Sat by Pulse Oximetry 95 Oxygen Delivery Method Room Air Room Air Lab Data Lab results reviewed: Yes I reviewed the patient's lab results. Lab Results 04/25/23 11:14: WBC 7.2, RBC 4.53, Hgb 14.2, Hct 42.4, MCV 93.7, MCH 31.4 H, MCHC 33.5, RDW 12.8, Plt Count 209, MPV 9.5, Neut % (Auto) 55.7, Lymph % (Auto) 36.9, Cook % (Auto) 3.4, Eos % (Auto) 3.3, Baso % (Auto) 0.8, Neut # (Auto) 4.0, Lymph # (Auto) 2.6, Cook # (Auto) 0.2, Eos # (Auto) 0.2, Baso # (Auto) 0.1, Sodium 140, Potassium 3.8, Chloride 105, Carbon Dioxide 27, Anion Gap 11.8, BUN 25 H, Creatinine 0.90, Estimated Creat Clear 83, Estimated GFR 64, Est GFR ( Amer) 78, Glucose 122 H, Calcium 9.2, Total Bilirubin 0.4, AST 41 H, ALT 42, Alkaline Phosphatase 84, NT-Pro-B Natriuret Pep 56.3, Total Protein 6.8, Albumin 4.0, Globulin 2.8, Albumin/Globulin Ratio 1.4 04/25/23 11:14 04/25/23 11:14 Orders (Tests/Meds): ED MEDICATIONS Discontinued Medications Generic Name Dose Route Start Last Admin Trade Name Freq PRN Reason Stop Dose Admin Iopamidol 170 ml 04/25/23 12:33 04/25/23 12:34 Iopamidol-370 (76%);100ml Bottle IV 04/25/23 12:34 170 ml ONCE ONE Administration Sodium Chloride 80 ml 04/25/23 12:31 04/25/23 12:33 0.9 % Sodium Chloride 50 Ml Vial IV 04/25/23 12:32 80 ml ONCE ONE Administration Sodium Chloride 10 ml 04/25/23 12:31 04/25/23 12:33 Sodium Chloride 0.9% 10ml Syr (Rad Only) IV 04/25/23 12:32 10 ml ONCE ONE Administration ORDERS Category Date Time Status CT angio chest PE protocol Stat Cat Scan 04/25/23 11:[address] angio head Stat Cat Scan 04/25/23 11:[address] angio neck Stat Cat Scan 04/25/23 11:[address] cervical spine wo con Stat Cat Scan 04/25/23 11:[address] head/brain wo con Stat Cat Scan 04/25/23 11:38 Completed Brain Natriuretic Peptide Stat Lab 04/25/23 11:14 Completed Complete Blood Count Auto Diff Stat Lab 04/25/23 11:14 Completed Comprehensive Metabolic Panel Stat Lab 04/25/23 11:14 Completed ECG initial Besson Routine Y 04/25/23 11:59 Completed ECG Data Tracing #1: I reviewed this ECG and interpreted as documented below: Sinus bradycardia with a ventricular rate of [address] changes concerning for ischemia. Low QRS voltage. Normal axis and intervals. ECG initial impression date: 04/25/23 ECG initial impression time: 12:03 Medical Decision Narrative: In summary, this patient is a 57-year-old female presenting to the Emergency Department for evaluation of fall with head injury but no loss of consciousness. Differential diagnoses considered include but are not limited to intracranial hemorrhage, intracranial mass, fracture, polytrauma. Ruling out the most morbid conditions drove assessment. It should be noted patient's history includes CVA, hypertension, hyperlipidemia, BARBARA, and chronic intermittent dizziness which may or may not be at goal therapy. This complicates all aspects of care by increasing patient's risk for morbidity. On exam, the patient is alert and neurologically at her baseline. No obvious external traumatic injuries noted. She also does complain of cough with an oxygen saturation in the low 90s. Workup included CT head, CT C-spine, and CTA of the chest to evaluate for possible PE given her low oxygen saturation and multiple episodes of dizziness with falls. Basic labs and EKG were also obtained. EKG is reassuring. I independently interpreted CT scans prior to the radiologist read and noted acute intracranial hemorrhage or acute infarction. Please see their read for final interpretation. Labs were obtained that demonstrated no acutely concerning abnormalities. On reassessment, the patient is resting comfortably and remains at her neurologic baseline. No traumatic injuries identified on workup, and she already has close [employer] follow-up arranged for with cardiology. At this time, feel that she is appropriate for discharge. She was given strict return precautions and instructions to close a patient follow-up. She was discharged in stable condition after all questions were answered. Critical Care Critical Care Time Critical Care Time: No
[2023-04-25] MEDS: SODIUM CHLORIDE 0.9% 10ML SYR (RAD ONLY) 10 ML IV (12:33)
[2023-04-25] MEDS: 0.9 % SODIUM CHLORIDE 50 ML VIAL 80 ML IV (12:33)
[2023-04-25] MEDS: IOPAMIDOL-370 (76%);100ML BOTTLE 170 ML IV (12:34)
[2023-04-25 13:01] VITALS: BP 149/86; PULSE 55; O2SAT 95
--- NOTE | 2023-04-25 13:05 | PC.NURSE ---
PT RESTING IN BED NO NEEDS AT THIS TIME CALL LIGHT AT BS
[2023-04-25 13:37] LABS: Basophils # 0.1 K/mm3 (0-0.2); Basophils % 0.8 % (0.1-2.0); Eosinophils # 0.2 K/mm3 (0.0-0.4); Eosinophils % 3.3 % (0.1-12.0); Hematocrit 42.4 % (37.0-47.0); Hemoglobin 14.2 g/dL (12.2-16.2); Lymphocytes # 2.6 K/mm3 (0.7-4.5); Lymphocytes % 36.9 % (10-50); Mean Corpuscular HGB Conc 33.5 g/dL (31.8-35.4); Mean Corpuscular Hemoglobin 31.4 pg (27.0-31.2); Mean Corpuscular Volume 93.7 fl (81-99); Mean Platelet Volume 9.5 fl (7.4-10.4); Monocytes # 0.2 K/mm3 (0.1-1.0); Monocytes % 3.4 % (1.7-9.3); Neutrophils % 55.7 % (37.0-80.0); Platelet Count 209 K/mm3 (142-424); Red Blood Count 4.53 M/mm3 (4.20-5.40); Red Cell Distribution Width 12.8 % (11.5-17.5); White Blood Count 7.2 K/mm3 (4.8-10.8)
[2023-04-25 13:55] VITALS: BP 160/92; PULSE 57; RESP 18; TEMP 36.8; O2SAT 95
== END 2023-04-25 13:56 | disposition home or self-care (01) ==
PROVIDERS: Emergency Provider Emergency Medicine; PCP Internal Medicine
DX: R42 Dizziness and giddiness (principal); I69.398 Other sequelae of cerebral infarction; I10 Essential (primary) hypertension; E03.9 Hypothyroidism, unspecified; J44.9 Chronic obstructive pulmonary disease, unspecified; E78.5 Hyperlipidemia, unspecified; G47.33 Obstructive sleep apnea (adult) (pediatric); R00.1 Bradycardia, unspecified; Z79.82 Long term (current) use of aspirin; Z87.891 Personal history of nicotine dependence; W19.XXXA Unspecified fall, initial encounter
CPT/HCPCS: 70450; 70496; 70498; 71275; 72125; 80053; 83880; 85025; 93005; 99285; Q9967

== ENCOUNTER 2023-08-05 15:14 | Outpatient (CLI) | payer MEDICARE, SELFPAY ==
[2023-08-05 13:48] LABS: Basophils # 0.1 K/mm3 (0-0.2); Basophils % 0.8 % (0.1-2.0); Eosinophils # 0.1 K/mm3 (0.0-0.4); Eosinophils % 1.8 % (0.1-12.0); Hematocrit 44.8 % (37.0-47.0); Hemoglobin 14.6 g/dL (12.2-16.2); Lymphocytes # 2.1 K/mm3 (0.7-4.5); Lymphocytes % 29.3 % (10-50); Mean Corpuscular HGB Conc 32.6 g/dL (31.8-35.4); Mean Corpuscular Hemoglobin 30.8 pg (27.0-31.2); Mean Corpuscular Volume 94.7 fl (81-99); Mean Platelet Volume 8.9 fl (7.4-10.4); Monocytes # 0.3 K/mm3 (0.1-1.0); Monocytes % 4.2 % (1.7-9.3); Neutrophils # 4.5 K/mm3 (1.8-7.8); Neutrophils % 63.9 % (37.0-80.0); Platelet Count 216 K/mm3 (142-424); Red Blood Count 4.73 M/mm3 (4.20-5.40); Red Cell Distribution Width 14.2 % (11.5-17.5)
[2023-08-05 14:07] LABS: Alanine Aminotransferase 38 U/L (12-78); Albumin Level 4.3 g/dl (3.5-5.0); Albumin/Globulin Ratio 1.7 (1.1-1.8); Alkaline Phosphatase 115 U/L (38-126); Aspartate Amino Transferase 37 U/L (14-36); Bilirubin,Total 0.8 mg/dl (0.2-1.3); Blood Urea Nitrogen 20 mg/dl (7-17); Calcium 9.7 mg/dl (8.4-10.2); Carbon Dioxide 29 mmol/L (22.0-30.0); Chloride 100 mmol/L (98-107); Chol/HDL Ratio 2.9 (1-3.5); Cholesterol 186 mg/dl (140-200); Estimated Glomerular Filt Rate 74 ml/min (>60); GFR (African American) 89 ML/MIN (>60); Globulin 2.6 g/dL (1.3-3.2); Glucose 123 mg/dl (74-100); HDL Cholesterol 65 mg/dl (40-60); Sodium 140 mmol/L (136-145); Total Protein,Serum 6.9 g/dl (6.3-8.2); Triglycerides 109 mg/dl (30-150); VLDL Cholesterol 22 mg/dL (0-40)
[2023-08-05 14:18] LABS: Direct LDL Cholesterol 89.34 mg/dL (100-129)
[2023-08-05 14:38] LABS: Thyroid Stimulating Hormone 2.06 uIU/mL (0.465-4.68)
[2023-08-05 14:56] LABS: Vitamin B12 636 pg/mL (239-931)
[2023-08-05 15:00] LABS: Ferritin 29.4 ng/ml (11.1-264)
== END 2023-08-05 23:59 | disposition home or self-care (01) ==
LOC: LAB.DROPOF 15:15
PROVIDERS: PCP Nurse Practitioner Family; Visit Provider Nurse Practitioner Family
DX: R42 Dizziness and giddiness (principal); I10 Essential (primary) hypertension; Z86.73 Personal history of transient ischemic attack (TIA), and cerebral infarction without residual deficits; E78.5 Hyperlipidemia, unspecified; E03.9 Hypothyroidism, unspecified; G62.9 Polyneuropathy, unspecified; D64.9 Anemia, unspecified; Z68.30 Body mass index [BMI] 30.0-30.9, adult; Z87.891 Personal history of nicotine dependence
CPT/HCPCS: 80053; 80061; 82607; 82728; 84443; 85025

== ENCOUNTER 2023-12-21 19:10 | Emergency (ER) | payer MEDICARE, SELFPAY ==
[2023-12-21 19:21] VITALS: BP 165/70; PULSE 81; RESP 16; TEMP 36.8; O2SAT 98; BMI 28.2
--- NOTE | 2023-12-21 19:29 | HMH.EDGENADL ---
Discharge Plan Disposition Patient Disposition: Home, Self-Care Prescriptions Prescriptions: No Action fluoxetine [Prozac] 20 mg capsule 20 mg PO DAILY Qty: 90 1RF aspirin [Adult Aspirin Regimen] 81 mg tablet,delayed release (DR/EC) 81 mg PO DAILY Qty: 90 3RF ondansetron 4 mg tablet,disintegrating 4 mg PO Q6H PRN (Reason: nausea and vomiting) 5 Days Qty: 20 0RF atorvastatin 80 mg tablet 80 mg PO DAILY albuterol sulfate 90 mcg/actuation aerosol powdr breath activated 2 inh inhalation Q6H PRN (Reason: shortness of breath) Qty: 1 0RF pantoprazole 40 mg tablet,delayed release (DR/EC) See Rx Instructions .ROUTE .COMPLEX Qty: 30 0RF Dose Instruction: TAKE ONE TABLET BY MOUTH ONCE A DAY Rx Instructions: TAKE ONE TABLET BY MOUTH ONCE A DAY losartan 25 mg tablet 25 mg PO DAILY Qty: 30 2RF fluoxetine 10 mg capsule See Rx Instructions .ROUTE .COMPLEX Qty: 30 2RF Dose Instruction: TAKE ONE CAPSULE BY MOUTH ONCE A DAY Rx Instructions: TAKE ONE CAPSULE BY MOUTH ONCE A DAY cholecalciferol (vitamin D3) [Vitamin D3] 50 mcg (2,000 unit) capsule See Rx Instructions .ROUTE .COMPLEX Qty: 90 3RF Dose Instruction: TAKE 1 CAPSULE BY MOUTH ONCE A DAY Rx Instructions: TAKE 1 CAPSULE BY MOUTH ONCE A DAY levothyroxine 100 mcg tablet See Rx Instructions .ROUTE .COMPLEX Qty: 30 0RF Dose Instruction: TAKE ONE TABLET BY MOUTH ONCE A DAY Rx Instructions: TAKE ONE TABLET BY MOUTH ONCE A DAY Referrals Follow up/Referrals: Haroon Townsend DO [Primary Care Provider] - See instructions Activity Restrictions/Add. Instructions Additional Instructions/Restrictions: Call your family doctor to establish care for this visit to the emergency department and schedule follow-up within 48 hours to ensure improvement. If you have any worsening of your condition or any other concerning signs or symptoms, return to the emergency department or your primary care doctor for further evaluation. Clinical Impressions Clinical Impression: Transient neurological symptoms Print Language Print Language: Latvian Discharge ED Provider: Major Mckeon General Adult HPI General Chief complaint: Neuro Symptoms/Deficit Stated complaint: NGUYỄN Time Seen by Provider: 12/21/23 19:15 Mode of Arrival: Family Vehicle Source of Information: Patient Limitations: No Limitations Description of Symptoms (Recalled from ER Triage Doc. by RN): 58 yo female presents with cc of piercing pain in left temporal area, that occurs intermittently approx every 6-8 seconds, accompanied by a decrease in vision field from same side eye . Denies changes in strength to all 4 extremities. Patient is alert, oriented, gcs 15. Slightly nauseated. Denies dyspnea, angina. Denies edema. Denies recent med changes. Denies recent illness. PMH: stroke 1 year ago. Last known normal 0330 History of Present Illness HPI narrative: Please note that above description of symptoms, in this electronic medical record under categorization of recalled from ER triage doctor by RN are reflective of an initial nursing assessment, however, is not reflective of my full history and physical exam that was personally taken and clarified. Consequentially, this preceding description of symptoms, which may include the patient's categorized chief complaint in the EMR, do not reflect my personal clinical impression, and the ultimate description of history of present illness and patient stated complaints should be deferred to this section of the note. Unless stated otherwise or congruent with this section of the note, additional signs, symptoms, or incongruence should be interpreted as inaccurate with my clinical impression. Related Data Home Medications ?Medication ?Instructions ?Recorded ?Confirmed atorvastatin 80 mg tablet 80 mg PO DAILY 08/05/23 08/29/23 Previous Rx's ?Medication ?Instructions ?Recorded aspirin 81 mg tablet,delayed 81 mg PO DAILY #90 tabs 02/15/23 release (Adult Aspirin Regimen) fluoxetine 20 mg capsule (Prozac) 20 mg PO DAILY #90 caps 02/15/23 pantoprazole 40 mg tablet,delayed See Rx Instructions .Route 04/12/23 release .COMPLEX #30 tabs ondansetron 4 mg disintegrating 4 mg PO Q6H PRN nausea and 06/30/23 tablet vomiting 5 days #20 tabs albuterol sulfate 90 mcg/actuation 2 inh inhalation Q6H PRN shortness 08/05/23 breath activated powder inhaler of breath #1 ea losartan 25 mg tablet 25 mg PO DAILY #30 tabs 10/20/23 fluoxetine 10 mg capsule See Rx Instructions .Route 10/31/23 .COMPLEX #30 caps cholecalciferol (vitamin D3) 50 See Rx Instructions .Route 11/07/23 mcg (2,000 unit) capsule (Vitamin .COMPLEX #90 caps D3) levothyroxine 100 mcg tablet See Rx Instructions .Route 12/13/23 .COMPLEX #30 tabs Allergies Allergy/AdvReac Type Severity Reaction Status Date / Time pentazocine [From Talwin] Allergy Verified 08/29/23 13:48 Sulfa (Sulfonamide Allergy Verified 08/29/23 13:48 Antibiotics) lisinopril AdvReac Mild cough Uncoded 08/29/23 13:48 [facility] Disclaimer: The information contained in this section may have been updated after the patient was seen, as this information can be updated by other users. Medical History (Updated 12/21/23 @ 21:19 by Major Mckeon MD) Tympanic membrane disorder Cerumen debris on tympanic membrane Otalgia, left ear Dizziness COPD (chronic obstructive pulmonary disease) Hypothyroidism Family history of ischemic heart disease before age 50 Tobacco abuse Obesity Depression Fever and chills Left otitis media with spontaneous rupture of eardrum Left leg paresthesias Recent cerebrovascular accident (CVA) Anxiety and depression BARBARA (obstructive sleep apnea) Hypertension Hyperlipidemia Dizziness Coronary artery calcification Syncope Social History Smoking Status: Unknown if ever smoked alcohol intake: never substance use type: denies use current occupational status: other Travel in the last 8 weeks: None household members: family housing: house ROS Obtained: Yes All systems reviewed & no additional complaints except as documented Physical Exam General General appearance: alert and in no apparent distress Head Head exam: atraumatic and normocephalic Eye Eye exam: Present normal appearance, PERRL and EOMI Neck Neck exam: Present normal inspection, full ROM and trachea midline Respiratory Respiratory exam: Present normal lung sounds bilaterally; Absent respiratory distress, wheezes, stridor, accessory muscle use or prolonged expiratory phase Cardiovascular Cardiovascular exam: Present regular rate, normal rhythm and other (Pulses equal symmetric in upper and lower extremities) Abdominal Exam Abdominal exam: Present soft; Absent distention, tenderness or pulsatile mass Extremities Exam Extremities exam: Present normal inspection; Absent edema Neurological Exam Neurological exam: Present alert, oriented X3, CN II-XII intact and normal gait; Absent motor sensory deficit Skin Skin exam: Present warm and dry; Absent diaphoresis or erythema Medical Decision Making Medical Records Medical records reviewed: Yes I reviewed the patient's medical records. Screening: Per USPSTF and CDC recommendations, given the prevalence of disease in our region, it is our hospital?s policy to screen for HIV and viral Hepatitis for all patients aged 18 and over and those with ongoing risk factors. Juan Inquiry Pt receiving controlled substance: No Juan was queried for this patient: No Vital Signs: 12/21/23 19:21 12/21/23 19:30 12/21/23 20:01 Temperature 98.2 F Temperature Source Oral Pulse Rate 61 62 Pulse Rate [Right Brachial] 81 Respiratory Rate 16 Blood Pressure 158/86 H 132/74 Blood Pressure [Right Arm] 165/70 H Blood Pressure Mean [Right Arm] 101 Blood Pressure Source [Right Arm] Automatic Cuff Blood Pressure Position [Right Arm] Sitting 02 Sat by Pulse Oximetry 98 96 91 L Oxygen Delivery Method Room Air Lab Data Lab Results 12/21/23 19:18: WBC 5.1, RBC 4.73, Hgb 14.8, Hct 46.4, MCV 98.1, MCH 31.4 H, MCHC 32.0, RDW 14.0, Plt Count 197, MPV 9.2, Neut % (Auto) 44.9, Lymph % (Auto) 46.2, [place] % (Auto) 4.6, Eos % (Auto) 2.9, Baso % (Auto) 1.4, Neut # (Auto) 2.3, Lymph # (Auto) 2.4, [place] # (Auto) 0.2, Eos # (Auto) 0.2, Baso # (Auto) 0.1, ESR 38 H, PT 9.9 L, INR 0.87 L, APTT 25.4, Sodium 138, Potassium 4.0, Chloride 108 H, Carbon Dioxide 27, Anion Gap 7.0, BUN 22 H, Creatinine 0.90, Estimated Creat Clear 84, Estimated GFR 64, Est GFR ( Amer) 78, Glucose 119 H, Calcium 9.3, Magnesium 1.9, Total Bilirubin 0.5, AST 45 H, ALT 38, Alkaline Phosphatase 84, Troponin I < 0.01, C-Reactive Protein 3.0, Total Protein 7.5, Albumin 4.3, Globulin 3.2, Albumin/Globulin Ratio 1.3, TSH 1.60, Thyroxine (T4) 12.2 H 12/21/23 19:32: VBG pH 7.31, VBG pCO2 49.6, VBG pO2 35.4, VBG HCO3 24.6, VBG Total CO2 26.1, VBG O2 Saturation 63.5, VBG Base Excess -1.6, VBG Lactic Acid 1.4 12/21/23 20:30: Urine Color Yellow, Urine Appearance Clear, Urine pH 5.5, Ur Specific [place] 1.020, Urine Protein Negative, Urine Glucose (UA) Negative, Urine Ketones Negative, Urine Blood Trace-i, Urine Nitrate Negative, Urine Bilirubin Negative, Urine Urobilinogen 0.2, Ur Leukocyte Esterase Negative 12/21/23 19:18 12/21/23 19:18 Orders (Tests/Meds): ED MEDICATIONS Generic Name Dose Route Start Last Admin Trade Name Freq PRN Reason Stop Dose Admin Sodium Chloride 10 ml 12/21/23 20:14 12/21/23 20:15 Sodium Chloride 0.9% 10ml Syr (Rad Only) IV 01/20/24 20:13 10 ml NEEDED PRN Administration Maintain IV Site Discontinued Medications Generic Name Dose Route Start Last Admin Trade Name Freq PRN Reason Stop Dose Admin Acetaminophen 1,000 mg 12/21/23 19:36 12/21/23 20:02 Acetaminophen 1,000mg/100ml Vial IV 12/21/23 19:37 1,000 mg ONCE ONE Administration Aspirin 324 mg 12/21/23 19:30 12/21/23 20:02 Aspirin 81mg Chewable Tablet PO 12/21/23 19:31 324 mg ONCE ONE Administration Iopamidol 80 ml 12/21/23 20:14 12/21/23 20:15 Iopamidol-370 (76%);100ml Bottle IV 12/21/23 20:15 80 ml ONCE ONE Administration Ketorolac Tromethamine 15 mg 12/21/23 19:36 12/21/23 20:01 Ketorolac 30mg/Ml Vial IV 12/21/23 19:37 15 mg ONCE ONE Administration Ondansetron HCl 4 mg 12/21/23 20:21 12/21/23 20:33 Ondansetron 4mg/2ml Vial IV 12/21/23 20:22 4 mg ONCE ONE Administration Sodium Chloride 50 ml 12/21/23 20:14 12/21/23 20:15 0.9 % Sodium Chloride 50 Ml Vial IV 12/21/23 20:15 50 ml ONCE ONE Administration ORDERS Category Date Time Status CT angio head Stat Cat Scan 12/21/23 19:[address] angio neck Stat Cat Scan 12/21/23 19:[address] head/brain wo con Stat Cat Scan 12/21/23 19:31 Completed XR chest portable Stat Exams 12/21/23 19:31 Completed CRP [C-Reactive Protein] Stat Lab 12/21/23 19:18 Completed Complete Blood Count Auto Diff Stat Lab 12/21/23 19:18 Completed Comprehensive Metabolic Panel Stat Lab 12/21/23 19:18 Completed ESR [Erythrocyte Sedimentation Rate] Stat Lab 12/21/23 19:18 Completed Hemoglobin A1C Stat Lab 12/21/23 19:18 Received Magnesium Stat Lab 12/21/23 19:18 Completed PT INR [Prothrombin Time INR] Stat Lab 12/21/23 19:18 Completed PTT [Activated Partial Thrombo Time] Stat Lab 12/21/23 19:18 Completed T4 (Thyroxine) Stat Lab 12/21/23 19:18 Completed TSH [Thyroid Stimulating Hormone] Stat Lab 12/21/23 19:18 Completed Troponin I Q3H Lab 12/21/23 22:45 Ordered Troponin I Q3H Lab 12/22/23 01:45 Ordered Troponin I Stat Lab 12/21/23 19:18 Completed Urinalysis and Microscopic Stat Lab 12/21/23 20:30 Results Venous Blood Gas Stat RT 12/21/23 19:32 Completed Medical Decision Narrative: 58-year-old female history of hypertension, hyperlipidemia, CAD, previous CVA x 2 on daily aspirin presenting with headache and word finding difficulty. Started earlier today, 12/20. Patient has chronic headaches daily, she states that this is worse. Quality and location are similar to her normal headaches. Denies new vision changes, weakness on her right side, any other neurologic deficits. Daughter corroborating story, states that she feels that patient has had more difficulty expressing herself, so given the constellation of symptoms brought her for further evaluation. Patient does not state that she feels particularly burdened by expressing herself, but states that she is frustrated and antsy. Speaking in full sentences without complication or interruption on exam. History was obtained via conversation with patient and daughter. On arrival, patient hemodynamically stable, alert, oriented x4, appropriate, GCS 15, moving all extremities spontaneously, pupils equal and reactive to light. Full physical exam performed and significant for neurologically intact female in no acute distress. No scalp tenderness, pupils equal and reactive bilaterally. No jaw claudication. Cranial nerve, cerebellar, motor and sensory exams within normal limits and symmetric. Speaking in full sentences. Cardiopulmonary exam within normal notes. Pulses equal and symmetric in upper and lower extremities. No lower extremity edema. Differential includes migraine, tension headache, cluster headache, GCA, intracranial hemorrhage, among others. Patient placed on continuous cardiac monitoring and continuous pulse ox with initial blood pressure 165/70, heart rate 1, saturation 98% on room air. Independent interpretation of EKG shows sinus bradycardia 54 beats a minute no ST or T wave changes concern for acute ischemia. Low amplitudes, normal axis.. Patient was given Toradol acetaminophen, fluids for symptomatic management and correction of underlying abnormalities. Workup independently interpreted and significant for nonactionable hematologic workup, negative ESR CRP, negative cardiac labs. Thyroid studies nonactionable.. On independent interpretation of imaging, no acute cardiopulmonary space disease on chest x-ray. No acute vascular disease on CT angiogram of the head or neck. No acute intracranial hemorrhage with stable previous left cerebellar stroke. See radiology read for full review of final results. On reevaluation, patient's headache almost entirely gone. 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 Because patient at baseline without signs or symptoms of clinical decompensation, deemed appropriate for discharge. Results were relayed to patient and family who voiced understanding and were agreeable to outpatient management and follow up. I discussed my clinical impression with patient and answered all questions. At this time, the evidence for any other entities in the differential is insufficient to warrant any further testing or ED observation. This was explained as well. Advisory was given that persistent or worsening symptoms require further evaluation. I confirmed the understanding of this discussion. 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 Electronic game show host of the spoken language may permit errors. Although I have reviewed the note, some errors may still exist. Critical Care Critical Care Time Critical Care Time: No
[2023-12-21 19:30] VITALS: BP 158/86; PULSE 61; O2SAT 96
--- NOTE | 2023-12-21 19:31 | CT_ITS ---
PROCEDURE INFORMATION: Exam: CTA Head With Contrast, Arteriography Exam date and time: 12/21/2023 8:16 PM Age: 58 years old Clinical indication: Stroke-like symptoms; Altered mental status/memory loss; Additional info: Word finding dicciulty TECHNIQUE: Imaging protocol: Computed tomographic angiography of the head with contrast. Exam focused on the arteries. 3D rendering (Not supervised by radiologist): MIP and/or 3D reconstructed images were created by the technologist. Radiation optimization: All CT scans at this facility use at least one of these dose optimization techniques: automated exposure control; mA and/or kV adjustment per patient size (includes targeted exams where dose is matched to clinical indication); or iterative reconstruction. Contrast material: ISOVUE; Contrast volume: 80 ml; Contrast route: INTRAVENOUS (IV); COMPARISON: CT HEAD/BRAIN WO CON 12/21/2023 8:12 PM FINDINGS: ANTERIOR CIRCULATION: Right internal carotid artery: Moderate calcific atherosclerotic disease of the right intracranial ICA resulting in moderate stenosis at the clinoid segment. Right middle cerebral artery: No occlusion or significant stenosis. No aneurysm. Right anterior cerebral artery: No occlusion or significant stenosis. No aneurysm. 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 Left middle cerebral artery: No occlusion or significant stenosis. No aneurysm. Left anterior cerebral artery: No occlusion or significant stenosis. No aneurysm. POSTERIOR CIRCULATION: Right vertebral artery: No occlusion or significant stenosis. No aneurysm. Left vertebral artery: No occlusion or significant stenosis. No aneurysm. Basilar artery: No occlusion or significant stenosis. No aneurysm. Right posterior cerebral artery: No occlusion or significant stenosis. No aneurysm. Left posterior cerebral artery: No occlusion or significant stenosis. No aneurysm. Brain: No definite mass, mass effect, or midline shift. Cerebral ventricles: No ventriculomegaly. Bones/joints: Unremarkable. No acute fracture. Soft tissues: Unremarkable. IMPRESSION: 1. Moderate calcific atherosclerotic disease of the right intracranial ICA resulting in moderate stenosis at the clinoid segment. 2. 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
--- NOTE | 2023-12-21 19:31 | CT_ITS ---
PROCEDURE INFORMATION: Exam: CT Head Without Contrast Exam date and time: 12/21/2023 8:12 PM Age: 58 years old Clinical indication: Stroke-like symptoms; Altered mental status/memory loss; Additional info: Word finding dicciulty TECHNIQUE: Imaging protocol: Computed tomography of the head without contrast. Radiation optimization: All CT scans at this facility use at least one of these dose optimization techniques: automated exposure control; mA and/or kV adjustment per patient size (includes targeted exams where dose is matched to clinical indication); or iterative reconstruction. Other technique: STROKE PROTOCOL was implemented. COMPARISON: CT HEAD/BRAIN WO CON 02/12/2023 2:32 PM FINDINGS: Brain: Left cerebellar hemisphere encephalomalacia unchanged from prior exam. There is moderate diffuse cerebral volume loss present. Multiple subcortical and deep hypoattenuating white matter foci are present, likely related to small vessel senescent changes and can also be seen with prior infectious / inflammatory insult, or prior traumatic events. No hyperattenuating foci are identified to suggest acute intracranial hemorrhage. Cerebral ventricles: No ventriculomegaly. Paranasal sinuses: Visualized sinuses are unremarkable. No fluid levels. Mastoid air cells: Visualized mastoid air cells are well aerated. Bones: Unremarkable. No acute fracture. Soft tissues: Unremarkable. IMPRESSION: 1. Multiple subcortical and deep hypoattenuating white matter foci are present, likely related to small vessel senescent changes and can also be seen with prior infectious / inflammatory insult, or prior traumatic events. 2. No hyperattenuating foci are identified to suggest acute intracranial hemorrhage. ASSESSMENT: ASPECTS ([place] Stroke Program Early CT Score) is 10.
--- NOTE | 2023-12-21 19:31 | XR_ITS ---
PROCEDURE INFORMATION: Exam: XR Chest Exam date and time: 12/21/2023 7:34 PM Age: 58 years old Clinical indication: Pain; Chest pressure; Additional info: Word finding dicciulty TECHNIQUE: Imaging protocol: Radiologic exam of the chest. Views: 1 view. COMPARISON: CT ANGIO CHEST PE PROTOCOL 04/25/2023 12:43 PM FINDINGS: Lungs: Left lower lobe calcified granuloma unchanged from prior exam. Pleuroparenchymal scarring of the lung bases with subsegmental atelectasis is present without consolidations or pleural effusions that project above the diaphragm. Pleural spaces: Unremarkable. No pleural effusion. No pneumothorax. Heart/Mediastinum: Unremarkable. No cardiomegaly. Bones/joints: Unremarkable. IMPRESSION: Pleuroparenchymal scarring of the lung bases with subsegmental atelectasis is present without consolidations or pleural effusions that project above the diaphragm.
--- NOTE | 2023-12-21 19:31 | CT_ITS ---
PROCEDURE INFORMATION: Exam: CTA Neck With Contrast Exam date and time: 12/21/2023 8:16 PM Age: 58 years old Clinical indication: Stroke-like symptoms; Altered mental status/memory loss; Additional info: Word finding dicciulty TECHNIQUE: Imaging protocol: Computed tomographic angiography of the neck with contrast. Exam focused on the cervical segments of the vasculature. 3D rendering (Not supervised by radiologist): MIP and/or 3D reconstructed images were created by the technologist. Radiation optimization: All CT scans at this facility use at least one of these dose optimization techniques: automated exposure control; mA and/or kV adjustment per patient size (includes targeted exams where dose is matched to clinical indication); or iterative reconstruction. Contrast material: ISOVUE; Contrast volume: 80 ml; Contrast route: INTRAVENOUS (IV); COMPARISON: CT ANGIO HEAD 12/21/2023 8:16 PM FINDINGS: Right common carotid artery: Moderate calcific atherosclerotic disease of the right carotid bulb resulting in moderate stenosis of the proximal right ICA. Right internal carotid artery: See Right common carotid artery finding. Right external carotid artery: No occlusion or stenosis of the origin. Left common carotid artery: Moderate calcific atherosclerotic disease of the left carotid bulb resulting in moderate stenosis of the proximal left ICA. Left internal carotid artery: See Left common carotid artery finding. Left external carotid artery: No occlusion or stenosis of the origin. 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 Soft tissues: Normal. No significant soft tissue swelling. Bones/joints: No acute fracture. IMPRESSION: 1. Moderate calcific atherosclerotic disease of the right carotid bulb resulting in moderate stenosis of the proximal right ICA. 2. Moderate calcific atherosclerotic disease of the left carotid bulb resulting in moderate stenosis of the proximal left ICA. 3. 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 4. 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 REFERENCES: NASCET CRITERIA. The degree of stenosis in the cervical segment of the internal carotid artery is based on NASCET criteria. Normal is no stenosis. Mild is less than 50% stenosis. Moderate is 50-69% stenosis. Severe is 70% to 99% stenosis. Total occlusion is no detectable patent lumen.
[2023-12-21 19:41] LABS: Lactate Venous 1.4 mmol/L (0.4-2.0); VBG Base Excess -1.6 mmol/L (-2.4-2.3); VBG HCO3 24.6 mmol/L (23-30); VBG Oxygen Saturation 63.5 % (50-70); VBG PCO2 49.6 mmol/L (35-51); VBG PH 7.31 mmol/L (7.31-7.41); VBG PO2 35.4 mmol/L (28-40); VBG Total CO2 26.1 mmol/L (23-27)
[2023-12-21 19:46] LABS: Albumin Level 4.3 g/dl (3.5-5.0); Chloride 108 mmol/L (98-107); Sodium 138 mmol/L (136-145)
[2023-12-21 19:47] LABS: INR 0.87 (0.9-1.1); Prothrombin Time 9.9 seconds (10.1-12.5)
[2023-12-21 19:49] LABS: Alanine Aminotransferase 38 U/L (12-78); Albumin/Globulin Ratio 1.3 (1.1-1.8); Alkaline Phosphatase 84 U/L (38-126); Aspartate Amino Transferase 45 U/L (14-36); Bilirubin,Total 0.5 mg/dl (0.2-1.3); Blood Urea Nitrogen 22 mg/dl (7-17); Calcium 9.3 mg/dl (8.4-10.2); Carbon Dioxide 27 mmol/L (22.0-30.0); Creatinine Clearance Estimated 84 mL/min (50-200); Estimated Glomerular Filt Rate 64 ml/min (>60); GFR (African American) 78 ML/MIN (>60); Globulin 3.2 g/dL (1.3-3.2); Glucose 119 mg/dl (74-100); Magnesium 1.9 mg/dl (1.6-2.3); Total Protein,Serum 7.5 g/dl (6.3-8.2)
[2023-12-21 19:57] LABS: Basophils # 0.1 K/mm3 (0-0.2); Basophils % 1.4 % (0.1-2.0); Eosinophils # 0.2 K/mm3 (0.0-0.4); Eosinophils % 2.9 % (0.1-12.0); Hematocrit 46.4 % (37.0-47.0); Hemoglobin 14.8 g/dL (12.2-16.2); Lymphocytes # 2.4 K/mm3 (0.7-4.5); Lymphocytes % 46.2 % (10-50); Mean Corpuscular Hemoglobin 31.4 pg (27.0-31.2); Mean Corpuscular Volume 98.1 fl (81-99); Mean Platelet Volume 9.2 fl (7.4-10.4); Monocytes # 0.2 K/mm3 (0.1-1.0); Monocytes % 4.6 % (1.7-9.3); Neutrophils # 2.3 K/mm3 (1.8-7.8); Neutrophils % 44.9 % (37.0-80.0); Platelet Count 197 K/mm3 (142-424); Red Blood Count 4.73 M/mm3 (4.20-5.40); White Blood Count 5.1 K/mm3 (4.8-10.8)
[2023-12-21 20:00] LABS: Activated Partial Thrombo Time 25.4 seconds (22.8-30.6)
[2023-12-21 20:01] VITALS: BP 132/74; PULSE 62; O2SAT 91
[2023-12-21] MEDS: KETOROLAC 30MG/ML VIAL 15 MG IV (20:01)
[2023-12-21] MEDS: ASPIRIN 81MG CHEWABLE TABLET 324 MG PO (20:02)
[2023-12-21] MEDS: ACETAMINOPHEN 1,000MG/100ML VIAL 1000 MG IV (20:02)
[2023-12-21 20:05] LABS: Troponin I < 0.01 ng/ml (0.00-0.034)
[2023-12-21 20:08] LABS: T4 (Thyroxine) 12.2 ug/dl (5.53-11.0)
[2023-12-21] MEDS: 0.9 % SODIUM CHLORIDE 50 ML VIAL IV (20:15)
[2023-12-21] MEDS: IOPAMIDOL-370 (76%);100ML BOTTLE 80 ML IV (20:15)
[2023-12-21] MEDS: SODIUM CHLORIDE 0.9% 10ML SYR (RAD ONLY) 10 ML IV (20:15)
[2023-12-21 20:19] LABS: Erythrocyte Sedimentation Rate 38 mm/hr (0-30)
--- NOTE | 2023-12-21 20:25 | ECG_ITS ---
APPROVED REPORT Exam: Resting ECG HR:54 bpm ECG Measurements Heart Rate 54 AXES MD 187 P 77 QRSd 85 QRS 47 QT 424 T 79 QTc 409 Conclusion Sinus bradycardia Electronically signed by : RADHA BELLO, 12/21/2023 21:39:33
--- NOTE | 2023-12-21 20:31 | PC.NURSE ---
received call from [facility] stating negative head ct w/o contrast.
[2023-12-21] MEDS: ONDANSETRON 4MG/2ML VIAL 4 MG IV (20:33)
[2023-12-21 20:47] LABS: Microscopic, Urine URINE MICROSCOPIC (MICROSCOPIC)
[2023-12-21 20:56] LABS: Appearance,Urine CLEAR (Clear); Bilirubin,Urine Negative (Negative); Blood, Urine TRACE-I (Negative); Color,Urine YELLOW (Yellow); Glucose,Urine (UA) Negative (Negative); Ketones,Urine Negative (Negative); Leukocyte Esterase,Urine Negative (Negative); Nitrate,Urine Negative (Negative); PH,Urine 5.5 (5.0-8.5); Protein,Urine Negative (Negative); Urobilinogen,Urine 0.2 EU/dl (0.2)
[2023-12-21 21:26] LABS: Bacteria,Urine 1+ /lpf
[2023-12-21 21:40] VITALS: BP 139/77; PULSE 54; RESP 20; TEMP 36.6; O2SAT 94
== END 2023-12-21 21:45 | disposition home or self-care (01) ==
PROVIDERS: Emergency Provider Emergency Medicine; PCP Internal Medicine
DX: R29.818 Other symptoms and signs involving the nervous system (principal); R51.9 Headache, unspecified; R00.1 Bradycardia, unspecified
CPT/HCPCS: 70450; 70496; 70498; 71045; 80053; 81001; 82803; 83036; 83735; 84436; 84443; 84484; 85025; 85610; 85651; 85730; 86140; 93005; 96374; 96375; 99285; J0131; J1885; J2405; Q9967

== ENCOUNTER 2024-01-13 15:40 | Outpatient (CLI) | payer MEDICARE, SELFPAY ==
--- NOTE | 2024-01-13 15:41 | MR_ITS ---
PROCEDURE INFORMATION: Exam: MR Head Without Contrast Exam date and time: 01/13/2024 4:41 PM Age: 58 years old Clinical indication: Other: Headache; Additional info: CVA TECHNIQUE: Imaging protocol: Magnetic resonance imaging of the head without contrast. COMPARISON: CT ANGIO HEAD 12/21/2023 8:16 PM FINDINGS: Brain: There is a chronic left cerebellar infarct. Mild to moderately scattered periventricular subcortical white matter hyperintensities are identified. There is no evidence of acute parenchymal hemorrhage, extra-axial collection, or acute infarction. There is no mass effect, midline shift, or downward herniation. Cerebral ventricles: Normal. No ventriculomegaly. Bones: Unremarkable. Paranasal sinuses: There is mild to moderate paranasal sinus disease. Mastoid air cells: Normal as visualized. No mastoid effusion. Orbital cavities: Unremarkable. Soft tissues: Unremarkable. IMPRESSION: 1. Chronic left cerebellar infarct. 2. [id number] white matter hyperintensities. Differential considerations include chronic microvascular ischemic change, demyelinating disease, or gliosis from infectious/inflammatory source. 3. Otherwise no evidence of acute intracranial process.
== END 2024-01-13 23:59 | disposition home or self-care (01) ==
LOC: RAD 15:41
PROVIDERS: PCP Internal Medicine; Visit Provider Internal Medicine
DX: R29.818 Other symptoms and signs involving the nervous system (principal); Z86.73 Personal history of transient ischemic attack (TIA), and cerebral infarction without residual deficits; R51.9 Headache, unspecified
CPT/HCPCS: 70551

== ENCOUNTER 2024-10-11 14:41 | Emergency (ER) | payer MEDICARE, SELFPAY ==
[2024-10-11 14:51] VITALS: BP 134/85; PULSE 109; RESP 16; TEMP 37.2; O2SAT 93; BMI 31.7
--- NOTE | 2024-10-11 15:07 | ED_ITS ---
<Statement entered by Alejandra Gutierrez DO - 10/11/24 17:51> I was consulted by the JOSE, and we discussed the complexity of the problems being addressed. I approved the treatment and management plan for this patient's care in the emergency department, thus performing a substantive portion of the medical decision making. Alejandra Gutierrez DO Discharge Plan Disposition Patient Disposition: Home, Self-Care Prescriptions Prescriptions: No Action aspirin [Adult Aspirin Regimen] 81 mg tablet,delayed release (DR/EC) 81 mg PO DAILY Qty: 90 3RF ondansetron 4 mg tablet,disintegrating 4 mg PO Q6H PRN (Reason: nausea and vomiting) 5 Days Qty: 20 0RF losartan 25 mg tablet 25 mg PO DAILY Qty: 3 0RF pantoprazole 40 mg tablet,delayed release (DR/EC) See Rx Instructions .ROUTE .COMPLEX Qty: 30 0RF Dose Instruction: TAKE ONE TABLET BY MOUTH ONCE A DAY Rx Instructions: TAKE ONE TABLET BY MOUTH ONCE A DAY cholecalciferol (vitamin D3) [Vitamin D3] 50 mcg (2,000 unit) capsule See Rx Instructions .ROUTE .COMPLEX Qty: 90 3RF Dose Instruction: TAKE 1 CAPSULE BY MOUTH ONCE A DAY Rx Instructions: TAKE 1 CAPSULE BY MOUTH ONCE A DAY albuterol sulfate 90 mcg/actuation HFA aerosol inhaler See Rx Instructions .ROUTE .COMPLEX Qty: 8.5 0RF Dose Instruction: INHALE 2 PUFFS BY MOUTH EVERY 6 HOURS NEEDED FOR SHORTNESS OF BREATH Rx Instructions: INHALE 2 PUFFS BY MOUTH EVERY 6 HOURS NEEDED FOR SHORTNESS OF BREATH atorvastatin 80 mg tablet See Rx Instructions .ROUTE .COMPLEX Qty: 90 3RF Dose Instruction: TAKE ONE TABLET BY MOUTH ONCE A DAY Rx Instructions: TAKE ONE TABLET BY MOUTH ONCE A DAY levothyroxine 100 mcg tablet See Rx Instructions .ROUTE .COMPLEX Qty: 90 1RF Dose Instruction: TAKE ONE TABLET BY MOUTH ONCE A DAY Rx Instructions: TAKE ONE TABLET BY MOUTH ONCE A DAY fluoxetine 20 mg capsule See Rx Instructions .ROUTE .COMPLEX Qty: 90 2RF Dose Instruction: TAKE ONE CAPSULE BY MOUTH ONCE A DAY Rx Instructions: TAKE ONE CAPSULE BY MOUTH ONCE A DAY fluoxetine 10 mg capsule See Rx Instructions .ROUTE .COMPLEX Qty: 30 0RF Dose Instruction: TAKE ONE CAPSULE BY MOUTH ONCE A DAY Rx Instructions: TAKE ONE CAPSULE BY MOUTH ONCE A DAY losartan 25 mg tablet See Rx Instructions .ROUTE .COMPLEX Qty: 30 2RF Dose Instruction: TAKE ONE TABLET BY MOUTH ONCE A DAY Rx Instructions: TAKE ONE TABLET BY MOUTH ONCE A DAY Referrals Follow up/Referrals: Haroon Townsend DO [Primary Care Provider, Family Practice] - See instructions Omar Addison MD [Staff Physician, General Surgery] - See instructions Activity Restrictions/Add. Instructions Additional Instructions/Restrictions: Call Dr. Addison for follow-up on the cyst. He can take this out for you. If any worsening problems or concerns please return to the ER. Clinical Impressions Clinical Impression: Cyst Instructions Patient Instructions: Epidermal Cyst Print Language Print Language: Belarusian Discharge ED Provider: Alejandra Gutierrez General Adult HPI <Yuridia Christine (ED), SNOW MA[employer]ER - Last Filed: 10/11/24 16:49> General Chief complaint: Skin/Abscess/Foreign Body Stated complaint: Skin abscess/infection on back Time Seen by Provider: 10/11/24 14:55 Mode of Arrival: Ambulatory Source of Information: Patient and Relative Description of Symptoms (Recalled from ER Triage Doc. by RN): Pt presents for evalation of a knot to her mid upper back. Pt states she has had it x 3-4 months, but the last couple of days it has increased in size and has become more painful. History of Present Illness HPI narrative: 59-year-old female presents to the ED today with complaint of a knot in the center of her back that is tender to touch, firm. Family is concerned about this. It has been there for 3 to 4 months but has increased in size over the past couple of days and become more painful. No fevers or chills. No nausea, vomiting or diarrhea no other symptoms. Related Data Previous Rx's ?Medication ?Instructions ?Recorded aspirin 81 mg tablet,delayed 81 mg PO DAILY #90 tabs 1 04/17/22 release (Adult Aspirin Regimen) pantoprazole 40 mg tablet,delayed See Rx Instructions .Route 04/12/23 release .COMPLEX #30 tabs ondansetron 4 mg disintegrating 4 mg PO Q6H PRN nausea and 06/30/23 tablet vomiting 5 days #20 tabs cholecalciferol (vitamin D3) 50 See Rx Instructions .R oute 11/07/23 mcg (2,000 unit) capsule (Vitamin .COMPLEX #90 caps D3) albuterol sulfate 90 mcg/actuation See Rx Instructions .Route 01/10/24 aerosol inhaler .COMPLEX #8.5 grams atorvastatin 80 mg tablet See Rx Instructions .Route 0 04/17/24 .COMPLEX #90 tabs levothyroxine 100 mcg tablet See Rx Instructions .Rout e 05/15/24 .COMPLEX #90 tabs fluoxetine 20 mg capsule See Rx Instructions .Route 0 07/19/24 .COMPLEX #90 caps fluoxetine 10 mg capsule See Rx Instructions .Route 0 08/28/24 .COMPLEX #30 caps losartan 25 mg tablet 25 mg PO DAILY #3 tabs 09/29 losartan 25 mg tablet See Rx Instructions .Route 0 10/01/24 .COMPLEX #30 tabs Allergies Allergy/AdvReac Type Severity Reaction Status Date / Time pentazocine (From [facility]) Allergy Verified 09/29/24 13:44 Sulfa (Sulfonamide Allergy Verified 09/29/24 13:44 Antibiotics) lisinopril AdvReac Mild cough Uncoded 09/29/24 13:44 [facility] <Yuridia Christine (ED), SN[employer] - Last Filed: 10/11/24 16:49> [facility] Disclaimer: The information contained in this section may have been updated after the patient was seen, as this information can be updated by other users. Medical History (Updated 10/11/24 @ 15:42 by Yuridia Christine (ED), SN[employer]ER) Medication refill Tympanic membrane disorder Cerumen debris on tympanic membrane Otalgia, left ear Dizziness COPD (chronic obstructive pulmonary disease) Hypothyroidism Family history of ischemic heart disease before age 50 Tobacco abuse Obesity Depression Fever and chills Left otitis media with spontaneous rupture of eardrum Left leg paresthesias Recent cerebrovascular accident (CVA) Anxiety and depression BARBARA (obstructive sleep apnea) Hypertension Hyperlipidemia Dizziness Coronary artery calcification Syncope Social History Smoking Status: Never smoker alcohol intake: never substance use type: denies use current occupational status: other Travel in the last 8 weeks?: None household members: family housing: house Have you lived/traveled outside US in past 30 days?: No Contact w/someone who lives/traveled outside US past 30 days?: No Exposure to someone with infectious disease in past 14 days?: No Do you have a fever (greater than 100.4 F or 38 C)?: No Have you tested positive for COVID-19?: No Exposed to someone with COVID-19 in past 14 days?: No Do you have a sore throat?: No Do you have a cough?: No Do you have any weakness?: No Do you have any diarrhea?: No Are you experiencing any unusual bleeding?: No Do you have any muscle aches/pain?: No Do you have any abdominal pain?: No Are you experiencing loss of taste or smell?: No Other Medical History Have you received the Flu Vaccine for this season: No Have you received the Pneumonia Vaccine: No <Yuridia Christine (ED), [employer] - Last Filed: 10/11/24 16:49> ROS Obtained: Yes Systems reviewed as appropriate & no additional complaints except as documented Constitutional Constitutional: Reports as per HPI Physical Exam <Yuridia Christine (ED), [employer] - Last Filed: 10/11/24 16:49> General General appearance: alert and in no apparent distress Head Head exam: atraumatic and normocephalic Eye Eye exam: Present normal appearance, PERRL and EOMI ENT ENT exam: Present normal oropharynx and mucous membranes moist Neck Neck exam: Present full ROM and trachea midline Respiratory Respiratory exam: Present normal lung sounds bilaterally Cardiovascular Cardiovascular exam: Present regular rate, normal rhythm, normal heart sounds, +S1 and +S2 Extremities Exam Extremities exam: Present full ROM and normal capillary refill Back Exam Back exam: Present tenderness (Between shoulder blades with cyst that is tender, firm) Neurological Exam Neurological exam: Present alert and oriented X3 Skin Skin exam: Present warm, dry and erythema (Mild, tender area between shoulder blades) Medical Decision Making <Yuridia Christine (ED), [employer] - Last Filed: 10/11/24 16:49> Medical Records Screening: Per USPSTF and CDC recommendations, given the prevalence of disease in our region, it is our hospital?s policy to screen for HIV and viral Hepatitis for all patients aged 18 and over and those with ongoing risk factors. Juan Inquiry Pt receiving controlled substance: No Vital Signs: 10/11/24 14:51 10/11/24 15:56 Temperature 98.9 F 98.1 F Temperature Source Oral Pulse Rate 70 Pulse Rate [Right] 109 H Respiratory Rate 16 20 Blood Pressure 141/87 H Blood Pressure [Right Arm] 134/85 Blood Pressure Mean [Right Arm] 101 Blood Pressure Source [Right Arm] Automatic Cuff Blood Pressure Position [Right Arm] Sitting 02 Sat by Pulse Oximetry 93 L Oxygen Delivery Method Room Air Room Air Orders (Tests/Meds): ORDERS Category Date Time Status POCUS Point of Care (ER Only) Stat Exams 10/11/24 15:09 Completed Medical Decision Narrative: patient is a 59-year-old female presenting to the emergency department for evaluation of possible abscess or cyst on the back. Patient is hemodynamically stable and nontoxic-appearing upon arrival, afebrile. Differential diagnosis includes cyst versus abscess. Workup will be conducted with ultrasound of cyst/area. Considered labs but I do not believe labs would be helpful to us today. Reports will do a POCUS at bedside. Dr. Gutierrez did bedside ultrasound and this was just a simple cyst with no infection. Patient opted to wait for outpatient treatment. She wants to wait and follow-up with surgeon. We discussed risks versus benefits of waiting. Patient is safe for discharge home <Alejandra Gutierrez DO - Last Filed: 10/11/24 16:01> Vital Signs: 10/11/24 14:51 10/11/24 15:56 Temperature 98.9 F 98.1 F Temperature Source Oral Pulse Rate 70 Pulse Rate [Right] 109 H Respiratory Rate 16 20 Blood Pressure 141/87 H Blood Pressure [Right Arm] 134/85 Blood Pressure Mean [Right Arm] 101 Blood Pressure Source [Right Arm] Automatic Cuff Blood Pressure Position [Right Arm] Sitting 02 Sat by Pulse Oximetry 93 L Oxygen Delivery Method Room Air Room Air Orders (Tests/Meds): ORDERS Category Date Time Status POCUS Point of Care (ER Only) Stat Exams 10/11/24 15:09 Completed Procedures <Alejandra Gutierrez DO - Last Filed: 10/11/24 16:01> Limited Ultrasound Findings:: Limited soft tissue ultrasound Indication: Soft tissue swelling Identified structures: Location: Upper back Findings: Anechoic cysts with no significant cobblestoning or inflammation Impression: Cyst without concern for infection Images were saved to permanent archive The study adequate was technically adequate Soft Tissue CPT Codes: CPT Neck: 65008-35 CPT Upper extremity: 71385-91 CPT Axilla: 66481-47 CPT Chest wall: 74919-83 CPT Breast: 57033-30-UZ/LT (complete), 30096-03-TY/LT (limited), CPT Upper Back: 23441-91 CPT Lower Back: 74018-15 CPT Abdominal Wall: 36584-60 CPT Pelvic Wall: 90359-76 CPT Lower Extremity: 68691-68 CPT Other Soft Tissue: 95626-06 This study was performed by me, and I personally interpreted all images/videos. Based on my clinical judgement, these images were adequate and did not necessitate further imaging. Critical Care <Yuridia Christine (ED), SN[employer] MA[employer]ER - Last Filed: 10/11/24 16:49> Critical Care Time Critical Care Time: No
--- OUTSIDE RECORDS SUMMARY | 2024-10-11 15:20 | XMS_ITS ---
Author Organization Unknown TREATMENT PLAN Planned Care Start Date Provider Encounter for Check-up [phone] [facility]
[2024-10-11 15:56] VITALS: BP 141/87; PULSE 70; RESP 20; TEMP 36.7; O2SAT 98
--- OUTSIDE RECORDS SUMMARY | 2024-10-11 16:20 | XMS_ITS | CCD ---
Author Organization Unknown Care Team Providers Care Silk Conditioner Name Role Phone Unavailable Primary Care Provider Unavailabl e Unavailable Chronic Care Management Unavaila ble Summary Purpose DataExchange Insurance Providers Payer name Policy type / Coverage type Covered republican ID Effective Begin Date Effective End Date [facility] [id number] Unknown Unknown Family History Family History data not found Medication Administered No Medication Administered data Reason For Visit No Reason For Visit data Medical Equipment No Medical Equipment data Advance Directives No Advance Directive data
== END 2024-10-11 15:58 | disposition home or self-care (01) ==
PROVIDERS: Emergency Provider Emergency Medicine; PCP Internal Medicine
DX: L72.9 Follicular cyst of the skin and subcutaneous tissue, unspecified (principal); E03.9 Hypothyroidism, unspecified; E78.5 Hyperlipidemia, unspecified; I10 Essential (primary) hypertension
CPT/HCPCS: 99283

== ENCOUNTER 2024-10-21 00:20 | Emergency (ER) | payer MEDICARE, SELFPAY ==
[2024-10-21 00:22] VITALS: BP 169/90; PULSE 90; RESP 16; TEMP 37; O2SAT 92; BMI 31.7
--- NOTE | 2024-10-21 00:36 | ED_ITS ---
Discharge Plan Disposition Patient Disposition: Home, Self-Care Prescriptions Prescriptions: New clindamycin HCl 150 mg capsule 450 mg PO TID 5 Days Qty: 45 0RF No Action aspirin [Adult Aspirin Regimen] 81 mg tablet,delayed release (DR/EC) 81 mg PO DAILY Qty: 90 3RF ondansetron 4 mg tablet,disintegrating 4 mg PO Q6H PRN (Reason: nausea and vomiting) 5 Days Qty: 20 0RF losartan 25 mg tablet 25 mg PO DAILY Qty: 3 0RF cholecalciferol (vitamin D3) [Vitamin D3] 50 mcg (2,000 unit) capsule See Rx Instructions .ROUTE .COMPLEX Qty: 90 3RF Dose Instruction: TAKE 1 CAPSULE BY MOUTH ONCE A DAY Rx Instructions: TAKE 1 CAPSULE BY MOUTH ONCE A DAY albuterol sulfate 90 mcg/actuation HFA aerosol inhaler See Rx Instructions .ROUTE .COMPLEX Qty: 8.5 0RF Dose Instruction: INHALE 2 PUFFS BY MOUTH EVERY 6 HOURS NEEDED FOR SHORTNESS OF BREATH Rx Instructions: INHALE 2 PUFFS BY MOUTH EVERY 6 HOURS NEEDED FOR SHORTNESS OF BREATH atorvastatin 80 mg tablet See Rx Instructions .ROUTE .COMPLEX Qty: 90 3RF Dose Instruction: TAKE ONE TABLET BY MOUTH ONCE A DAY Rx Instructions: TAKE ONE TABLET BY MOUTH ONCE A DAY levothyroxine 100 mcg tablet See Rx Instructions .ROUTE .COMPLEX Qty: 90 1RF Dose Instruction: TAKE ONE TABLET BY MOUTH ONCE A DAY Rx Instructions: TAKE ONE TABLET BY MOUTH ONCE A DAY fluoxetine 20 mg capsule See Rx Instructions .ROUTE .COMPLEX Qty: 90 2RF Dose Instruction: TAKE ONE CAPSULE BY MOUTH ONCE A DAY Rx Instructions: TAKE ONE CAPSULE BY MOUTH ONCE A DAY fluoxetine 10 mg capsule See Rx Instructions .ROUTE .COMPLEX Qty: 30 0RF Dose Instruction: TAKE ONE CAPSULE BY MOUTH ONCE A DAY Rx Instructions: TAKE ONE CAPSULE BY MOUTH ONCE A DAY Referrals Follow up/Referrals: Haroon Townsend DO [Primary Care Provider, Family Practice] - See instructions Activity Restrictions/Add. Instructions Additional Instructions/Restrictions: Please take antibiotics as prescribed for treatment of cellulitis/infected cyst. There is packing in place. Please have it taken out in 48 hours or so. This can be done at your primary care doctors, urgent care or in the ER. Please follow-up with your PCP for reassessment. Clinical Impressions Clinical Impression: Infected cyst of skin Instructions Patient Instructions: DI for Skin Abscess Print Language Print Language: Bulgarian Discharge ED Provider: Ghassan Gil General Adult HPI General Chief complaint: Skin/Abscess/Foreign Body Stated complaint: skin abcess on back, infection Time Seen by Provider: 10/21/24 00:36 Mode of Arrival: Wheelchair Source of Information: Relative Description of Symptoms (Recalled from ER Triage Doc. by RN): Had a cyst on upper back for 4 months. Last week is started getting bigger. Was seen here and dx a cyst, tonight family is concerned it is infected. History of Present Illness HPI narrative: 59-year-old female with history of stroke presents for concern for infected cyst. They were seen recently for the cyst and sent home since it was not infected. They try to follow-up outpatient to have it excised but over the last day or so it has become much more red and hot and angry appearing. Seems to have enlarged in size as well. No systemic fever or systemic symptoms. Related Data Previous Rx's ?Medication ?Instructions ?Recorded aspirin 81 mg tablet,delayed 81 mg PO DAILY #90 tabs 1 04/17/22 release (Adult Aspirin Regimen) ondansetron 4 mg disintegrating 4 mg PO Q6H PRN nausea and 06/30/23 tablet vomiting 5 days #20 tabs cholecalciferol (vitamin D3) 50 See Rx Instructions .R oute 11/07/23 mcg (2,000 unit) capsule (Vitamin .COMPLEX #90 caps D3) albuterol sulfate 90 mcg/actuation See Rx Instructions .Route 01/10/24 aerosol inhaler .COMPLEX #8.5 grams atorvastatin 80 mg tablet See Rx Instructions .Route 0 04/17/24 .COMPLEX #90 tabs levothyroxine 100 mcg tablet See Rx Instructions .Rout e 05/15/24 .COMPLEX #90 tabs fluoxetine 20 mg capsule See Rx Instructions .Route 0 07/19/24 .COMPLEX #90 caps losartan 25 mg tablet 25 mg PO DAILY #3 tabs 09/29 fluoxetine 10 mg capsule See Rx Instructions .Route 0 10/16/24 .COMPLEX #30 caps clindamycin HCl 150 mg capsule 450 mg (3 x 150 mg) PO TID 5 days 10/21/24 #45 caps Allergies Allergy/AdvReac Type Severity Reaction Status Date / Time pentazocine (From Reyna) Allergy Verified 09/29/24 13:44 Sulfa (Sulfonamide Allergy Verified 09/29/24 13:44 Antibiotics) lisinopril AdvReac Mild cough Uncoded 09/29/24 13:44 [facility] Disclaimer: The information contained in this section may have been updated after the patient was seen, as this information can be updated by other users. Medical History (Updated 10/21/24 @ 01:18 by Ghassan Gil MD) Medication refill Tympanic membrane disorder Cerumen debris on tympanic membrane Otalgia, left ear Dizziness COPD (chronic obstructive pulmonary disease) Hypothyroidism Family history of ischemic heart disease before age 50 Tobacco abuse Obesity Depression Fever and chills Left otitis media with spontaneous rupture of eardrum Left leg paresthesias Recent cerebrovascular accident (CVA) Anxiety and depression BARBARA (obstructive sleep apnea) Hypertension Hyperlipidemia Dizziness Coronary artery calcification Syncope Social History Smoking Status: Former smoker tobacco type: cigarettes packs per day: 1 alcohol intake: never substance use type: denies use current occupational status: other Travel in the last 8 weeks?: None household members: family housing: house Have you lived/traveled outside US in past 30 days?: No Contact w/someone who lives/traveled outside US past 30 days?: No Exposure to someone with infectious disease in past 14 days?: No Do you have a fever (greater than 100.4 F or 38 C)?: No Have you tested positive for COVID-19?: No Exposed to someone with COVID-19 in past 14 days?: No Do you have a sore throat?: No Do you have a cough?: No Do you have any weakness?: No Do you have any diarrhea?: No Are you experiencing any unusual bleeding?: No Do you have any muscle aches/pain?: No Do you have any abdominal pain?: No Are you experiencing loss of taste or smell?: No Other Medical History Have you received the Flu Vaccine for this season: No Have you received the Pneumonia Vaccine: No ROS Obtained: Yes All systems reviewed & no additional complaints except as documented Physical Exam General General appearance: alert and in no apparent distress Head Head exam: atraumatic and normocephalic Eye Eye exam: Present normal appearance, PERRL and EOMI ENT ENT exam: Present normal oropharynx and normal external ear exam Neck Neck exam: Present normal inspection and full ROM Chest Chest inspection: Present normal inspection and symmetric chest wall rise; Absent tenderness Respiratory Respiratory exam: Present normal lung sounds bilaterally; Absent respiratory distress Cardiovascular Cardiovascular exam: Present regular rate and normal rhythm Abdominal Exam Abdominal exam: Present soft; Absent distention, tenderness or guarding Extremities Exam Extremities exam: Present normal inspection; Absent edema or joint swelling Back Exam Back exam: Present other (Large cyst in the mid thoracic back, overlying erythema, induration and tenderness noted) Neurological Exam Neurological exam: Present alert and oriented X3; Absent motor sensory deficit Psychiatric Psychiatric exam: Present normal affect and normal mood Skin Skin exam: Present warm, dry and normal color Lymphatic Lymphatic Findings: no adenopathy Medical Decision Making Medical Records Medical records reviewed: Yes I reviewed the patient's medical records. Screening: Per USPSTF and CDC recommendations, given the prevalence of disease in our region, it is our hospital?s policy to screen for HIV and viral Hepatitis for all patients aged 18 and over and those with ongoing risk factors. Juan Inquiry Pt receiving controlled substance: No Juan was queried for this patient: No Vital Signs: 10/21/24 00:22 10/21/24 00:45 10/21/24 01:30 Temperature 98.6 F 98 F Temperature Source Oral Pulse Rate 89 89 Pulse Rate [Radial] 90 Respiratory Rate 16 16 Blood Pressure 133/83 133/83 Blood Pressure [Right Arm] 169/90 H Blood Pressure Mean [Right Arm] 116 Blood Pressure Source [Right Arm] Automatic Cuff Blood Pressure Position [Right Arm] Sitting 02 Sat by Pulse Oximetry 92 L 96 Oxygen Delivery Method Room Air Lab Data Lab results reviewed: Yes I reviewed the patient's lab results. Orders (Tests/Meds): ED MEDICATIONS Discontinued Medications Generic Name Dose Route Start Last Admin Trade Name Freq PRN Reason Stop Dose Admin Clindamycin HCl 450 mg 10/21/24 01:17 10/21/24 01:21 Clindamycin 150mg Capsule PO 10/21/24 01:18 450 mg ONCE ONE Administration Lidocaine/Prilocaine 5 gm 10/21/24 00:52 10/21/24 00:50 Lidocaine/Prilocaine 5gm Tube TP 10/21/24 00:53 5 gm ONCE ONE Administration Medical Decision Narrative: 59-year-old female with prior stroke, COPD presents for infected cyst on the back. History was obtained via interactive discussion with patient. On arrival, patient is [afebrile, hemodynamically stable, satting appropriately, alert, oriented x4, GCS 15], moving all extremities spontaneously. Full physical exam performed and significant for large infected appearing cystic structure in the mid thoracic back Differential includes but is not limited to cyst, abscess, cellulitis,. Topical lidocaine was applied and the cyst was incised, irrigated, drained and packed at bedside. Copious volume of purulent malodorous material was expressed. Patient was initiated on clindamycin for coverage of skin/soft tissue infection. She was encouraged to follow-up with PCP and to have the packing removed in the next couple of days. Discharged prescription for clindamycin. Procedures Risk/Benefits of Procedure(s) Were Explained: Yes Critical Care Critical Care Time Critical Care Time: No
[2024-10-21 00:45] VITALS: BP 133/83; PULSE 89; O2SAT 96
[2024-10-21] MEDS: LIDOCAINE/PRILOCAINE 5GM TUBE 5 GM TP (00:50)
[2024-10-21] MEDS: CLINDAMYCIN 150MG CAPSULE 450 MG PO (01:21)
[2024-10-21 01:30] VITALS: BP 133/83; PULSE 89; RESP 16; TEMP 36.6; O2SAT 96
--- OUTSIDE RECORDS SUMMARY | 2024-10-21 01:34 | XMS_ITS | CCD ---
Author Organization Unknown Care Team Providers Care Rod Hanger Name Role Phone Unavailable Primary Care Provider Unavailabl e Unavailable Chronic Care Management Unavaila ble Summary Purpose DataExchange Insurance Providers Payer name Policy type / Coverage type Covered democrat ID Effective Begin Date Effective End Date [facility] [id number] Unknown Unknown Family History Family History data not found Medication Administered No Medication Administered data Reason For Visit No Reason For Visit data Medical Equipment No Medical Equipment data Advance Directives No Advance Directive data
--- OUTSIDE RECORDS SUMMARY | 2024-10-21 01:34 | XMS_ITS | CCD ---
Author Organization Unknown Care Team Providers Care Greenhouse Assistant Name Role Phone Unavailable Primary Care Provider Unavailabl e Unavailable Chronic Care Management Unavaila ble Summary Purpose DataExchange Insurance Providers Payer name Policy type / Coverage type Covered green party ID Effective Begin Date Effective End Date [facility] [id number] Unknown Unknown Family History Family History data not found Medication Administered No Medication Administered data Reason For Visit No Reason For Visit data Medical Equipment No Medical Equipment data Advance Directives No Advance Directive data
== END 2024-10-21 01:34 | disposition home or self-care (01) ==
PROVIDERS: Emergency Provider Emergency Medicine; PCP Internal Medicine
DX: L02.212 Cutaneous abscess of back [any part, except buttock and flank] (principal); L72.9 Follicular cyst of the skin and subcutaneous tissue, unspecified
CPT/HCPCS: 10060; 99283

== ENCOUNTER 2024-10-23 20:14 | Emergency (ER) | payer MEDICARE, SELFPAY ==
[2024-10-23 20:34] VITALS: BP 117/73; PULSE 83; RESP 20; TEMP 36.8; O2SAT 95; BMI 31.7
--- NOTE | 2024-10-23 20:48 | HMH.EDGENADL ---
Discharge Plan Disposition Patient Disposition: Home, Self-Care Condition: Good Prescriptions Prescriptions: No Action aspirin [Adult Aspirin Regimen] 81 mg tablet,delayed release (DR/EC) 81 mg PO DAILY Qty: 90 3RF ondansetron 4 mg tablet,disintegrating 4 mg PO Q6H PRN (Reason: nausea and vomiting) 5 Days Qty: 20 0RF losartan 25 mg tablet 25 mg PO DAILY Qty: 3 0RF cholecalciferol (vitamin D3) [Vitamin D3] 50 mcg (2,000 unit) capsule See Rx Instructions .ROUTE .COMPLEX Qty: 90 3RF Dose Instruction: TAKE 1 CAPSULE BY MOUTH ONCE A DAY Rx Instructions: TAKE 1 CAPSULE BY MOUTH ONCE A DAY albuterol sulfate 90 mcg/actuation HFA aerosol inhaler See Rx Instructions .ROUTE .COMPLEX Qty: 8.5 0RF Dose Instruction: INHALE 2 PUFFS BY MOUTH EVERY 6 HOURS NEEDED FOR SHORTNESS OF BREATH Rx Instructions: INHALE 2 PUFFS BY MOUTH EVERY 6 HOURS NEEDED FOR SHORTNESS OF BREATH atorvastatin 80 mg tablet See Rx Instructions .ROUTE .COMPLEX Qty: 90 3RF Dose Instruction: TAKE ONE TABLET BY MOUTH ONCE A DAY Rx Instructions: TAKE ONE TABLET BY MOUTH ONCE A DAY levothyroxine 100 mcg tablet See Rx Instructions .ROUTE .COMPLEX Qty: 90 1RF Dose Instruction: TAKE ONE TABLET BY MOUTH ONCE A DAY Rx Instructions: TAKE ONE TABLET BY MOUTH ONCE A DAY fluoxetine 20 mg capsule See Rx Instructions .ROUTE .COMPLEX Qty: 90 2RF Dose Instruction: TAKE ONE CAPSULE BY MOUTH ONCE A DAY Rx Instructions: TAKE ONE CAPSULE BY MOUTH ONCE A DAY fluoxetine 10 mg capsule See Rx Instructions .ROUTE .COMPLEX Qty: 30 0RF Dose Instruction: TAKE ONE CAPSULE BY MOUTH ONCE A DAY Rx Instructions: TAKE ONE CAPSULE BY MOUTH ONCE A DAY clindamycin HCl 150 mg capsule 450 mg PO TID 5 Days Qty: 45 0RF Referrals Follow up/Referrals: Haroon Townsend DO [Primary Care Provider, Family Practice] - See instructions Activity Restrictions/Add. Instructions Additional Instructions/Restrictions: As we discussed please utilize the packing material that I gave you and change her packing daily. You may wash with soap and water in conjunction with your packing change. Please keep your appointment with your general surgeon. If you have any persistent new or worsening signs or symptoms please follow-up with your PCP return to the ER as needed. Clinical Impressions Clinical Impression: Encounter for medical assessment Instructions Patient Instructions: DI for Skin Abscess Print Language Print Language: Surinamese Discharge ED Provider: Washington Wooten Adult HPI <PAO Emery - Last Filed: 10/23/24 21:24> General Chief complaint: Skin/Abscess/Foreign Body Stated complaint: Cyst on back oozing, packing needs removed Time Seen by Provider: 10/23/24 20:48 Mode of Arrival: Wheelchair Source of Information: Patient Description of Symptoms (Recalled from ER Triage Doc. by RN): abcess drained Tuesday and now needs packing removed History of Present Illness HPI narrative: Patient presents for evaluation of a sebaceous cyst and packing change. Patient had a sebaceous cyst drained in the ER over the weekend. They unfortunately were unclear about packing instructions and have not changed the packing since. They did not want to know what to do's and they could not get in with her PCP for a week so they came to the ER for evaluation she has no new complaints and reports that things have been going well other than being able to change the packing. Related Data Previous Rx's ?Medication ?Instructions ?Recorded aspirin 81 mg tablet,delayed 81 mg PO DAILY #90 tabs 02/15/23 release (Adult Aspirin Regimen) ondansetron 4 mg disintegrating 4 mg PO Q6H PRN nausea and 06/30/23 tablet vomiting 5 days #20 tabs cholecalciferol (vitamin D3) 50 See Rx Instructions .Route 11/07/23 mcg (2,000 unit) capsule (Vitamin .COMPLEX #90 caps D3) albuterol sulfate 90 mcg/actuation See Rx Instructions .Route 01/10/24 aerosol inhaler .COMPLEX #8.5 grams atorvastatin 80 mg tablet See Rx Instructions .Route 04/17/24 .COMPLEX #90 tabs levothyroxine 100 mcg tablet See Rx Instructions .Route 05/15/24 .COMPLEX #90 tabs fluoxetine 20 mg capsule See Rx Instructions .Route 07/19/24 .COMPLEX #90 caps losartan 25 mg tablet 25 mg PO DAILY #3 tabs 09/29/24 fluoxetine 10 mg capsule See Rx Instructions .Route 10/16/24 .COMPLEX #30 caps clindamycin HCl 150 mg capsule 450 mg (3 x 150 mg) PO TID 5 days 10/21/24 #45 caps Allergies Allergy/AdvReac Type Severity Reaction Status Date / Time pentazocine (From Talketan) Allergy Verified 09/29/24 13:44 Sulfa (Sulfonamide Allergy Verified 09/29/24 13:44 Antibiotics) lisinopril AdvReac Mild cough Uncoded 09/29/24 13:44 PFSH <PAO Emery - Last Filed: 10/23/24 21:24> [facility] Disclaimer: The information contained in this section may have been updated after the patient was seen, as this information can be updated by other users. Medical History (Updated 10/23/24 @ 21:16 by PAO Emery) Medication refill Tympanic membrane disorder Cerumen debris on tympanic membrane Otalgia, left ear Dizziness COPD (chronic obstructive pulmonary disease) Hypothyroidism Family history of ischemic heart disease before age 50 Tobacco abuse Obesity Depression Fever and chills Left otitis media with spontaneous rupture of eardrum Left leg paresthesias Recent cerebrovascular accident (CVA) Anxiety and depression BARBARA (obstructive sleep apnea) Hypertension Hyperlipidemia Dizziness Coronary artery calcification Syncope Social History Smoking Status: Never smoker alcohol intake: never substance use type: denies use current occupational status: other Travel in the last 8 weeks?: None household members: family housing: house Have you lived/traveled outside [place] in past 30 days?: No Contact w/someone who lives/traveled outside [place] past 30 days?: No Exposure to someone with infectious disease in past 14 days?: No Do you have a fever (greater than 100.4 F or 38 C)?: No Have you tested positive for COVID-19?: No Exposed to someone with COVID-19 in past 14 days?: No Do you have a sore throat?: No Do you have a cough?: No Do you have any weakness?: No Do you have any diarrhea?: No Are you experiencing any unusual bleeding?: No Do you have any muscle aches/pain?: No Do you have any abdominal pain?: No Are you experiencing loss of taste or smell?: No Other Medical History Have you received the Flu Vaccine for this season: No Have you received the Pneumonia Vaccine: No <PAO Emery - Last Filed: 10/23/24 21:24> ROS Obtained: Yes Systems reviewed as appropriate & no additional complaints except as documented Physical Exam <PAO Emery - Last Filed: 10/23/24 21:24> General General appearance: alert Respiratory Respiratory exam: Present normal lung sounds bilaterally Cardiovascular Cardiovascular exam: Present regular rate Neurological Exam Neurological exam: Present alert and oriented X3 Medical Decision Making <PAO Emery - Last Filed: 10/23/24 21:24> Medical Records Medical records reviewed: Yes I reviewed the patient's medical records. Screening: Per USPSTF and CDC recommendations, given the prevalence of disease in our region, it is our hospital?s policy to screen for HIV and viral Hepatitis for all patients aged 18 and over and those with ongoing risk factors. Juan Inquiry Pt receiving controlled substance: No Vital Signs: 10/23/24 20:34 10/23/24 21:22 Temperature 98.2 F 98.7 F Temperature Source Oral Pulse Rate 83 Pulse Rate [Right Radial] 83 Respiratory Rate 20 16 Blood Pressure 112/75 Blood Pressure [Right Arm] 117/73 Blood Pressure Mean [Right Arm] 87 Blood Pressure Source [Right Arm] Automatic Cuff Blood Pressure Position [Right Arm] Sitting 02 Sat by Pulse Oximetry 95 Oxygen Delivery Method Room Air Room Air Orders (Tests/Meds): ORDERS Category Date Time Status HIV Combo Routine Lab 10/23/24 20:37 Ordered Hepatitis C Ab Qual. W/ RFX Routine Lab 10/23/24 20:37 Ordered Medical Decision Narrative: In summary patient is a 59-year-old female who presents to the emergency department for evaluation of previously drained sebaceous cyst on her back and a packing change. Patient is hemodynamically stable upon arrival, febrile. Physical exam shows a significantly improving sebaceous cyst drain in the middle of her back. Packing still in place from initial I&D. There is no erythema edema no induration and there is scant purulent drainage.. Differential diagnosis includes normal course of a drained sebaceous cyst and as there are no red flags for any other complications alternative diagnosis is are not pursued but could include recollection deeper cyst etc. Given that everything appears to be normal I have instructed the patient and her family members in attendance on proper packing and wound care. They will change the packing once a day they were given the supplies to do so. They were instructed to follow-up with the PCP return to the ER for any worsening signs or symptoms otherwise keep their appointment with general surgery for cyst excision. If they have any new symptoms they can follow-up in the ER as needed. <Washington Wooten DO - Last Filed: 10/25/24 10:18> Juan Martinez was queried for this patient: No Vital Signs: 10/23/24 20:34 10/23/24 21:22 Temperature 98.2 F 98.7 F Temperature Source Oral Pulse Rate 83 Pulse Rate [Right Radial] 83 Respiratory Rate 20 16 Blood Pressure 112/75 Blood Pressure [Right Arm] 117/73 Blood Pressure Mean [Right Arm] 87 Blood Pressure Source [Right Arm] Automatic Cuff Blood Pressure Position [Right Arm] Sitting 02 Sat by Pulse Oximetry 95 Oxygen Delivery Method Room Air Room Air Orders (Tests/Meds): ORDERS Category Date Time Status HIV Combo Routine Lab 10/23/24 20:37 Ordered Hepatitis C Ab Qual. W/ RFX Routine Lab 10/23/24 20:37 Ordered Medical Decision Narrative: In summary patient is a 59-year-old female who presents to the emergency department for evaluation of previously drained sebaceous cyst on her back and a packing change. Patient is hemodynamically stable upon arrival, febrile. Physical exam shows a significantly improving sebaceous cyst drain in the middle of her back. Packing still in place from initial I&D. There is no erythema, no edema, and no induration and there is scant purulent drainage. Differential diagnosis includes normal course of a drained sebaceous cyst and as there are no red flags for any other complications alternative diagnosis is are not pursued but could include recollection deeper cyst etc. Given that everything appears to be normal I have instructed the patient and her family members in attendance on proper packing and wound care. They will change the packing once a day they were given the supplies to do so. They were instructed to follow-up with the PCP return to the ER for any worsening signs or symptoms otherwise keep their appointment with general surgery for cyst excision. If they have any new symptoms they can follow-up in the ER as needed. Attending Attestation: I was consulted by the JOSE, and we discussed the complexity of problems being addressed. I approved the treatment and management plan for this patient's care in the emergency department, thus performing a substantive portion of the medical decision making. Washington Wooten DO Critical Care <PAO Emery - Last Filed: 10/23/24 21:24> Critical Care Time Critical Care Time: No
[2024-10-23 21:22] VITALS: BP 112/75; PULSE 83; RESP 16; TEMP 37.1; O2SAT 93
--- OUTSIDE RECORDS SUMMARY | 2024-10-23 21:47 | XMS_ITS | CCD ---
Author Organization Unknown Care Team Providers Care Rn Invasive Name Role Phone Unavailable Primary Care Provider Unavailabl e Unavailable Chronic Care Management Unavaila ble Summary Purpose DataExchange Insurance Providers Payer name Policy type / Coverage type Covered green party ID Effective Begin Date Effective End Date [facility] [id number] Unknown Unknown Family History Family History data not found Medication Administered No Medication Administered data Reason For Visit No Reason For Visit data Medical Equipment No Medical Equipment data Advance Directives No Advance Directive data
--- OUTSIDE RECORDS SUMMARY | 2024-10-23 21:47 | XMS_ITS | CCD ---
Author Organization Unknown Care Team Providers Care Hardware Press Operator Name Role Phone Unavailable Primary Care Provider Unavailabl e Unavailable Chronic Care Management Unavaila ble Summary Purpose DataExchange Insurance Providers Payer name Policy type / Coverage type Covered constitution party ID Effective Begin Date Effective End Date [facility] [id number] Unknown Unknown Family History Family History data not found Medication Administered No Medication Administered data Reason For Visit No Reason For Visit data Medical Equipment No Medical Equipment data Advance Directives No Advance Directive data
== END 2024-10-23 21:24 | disposition home or self-care (01) ==
PROVIDERS: Emergency Provider Student in an Organized Health Care Education/Training Program; PCP Internal Medicine
DX: L72.9 Follicular cyst of the skin and subcutaneous tissue, unspecified (principal); Z00.8 Encounter for other general examination
CPT/HCPCS: 10061; 99282